=== PATIENT | male | born 1990 | race Caucasian/White ===

== ENCOUNTER 2020-02-03 07:49 | Outpatient (CLI) | payer OTHER, SELFPAY ==
--- NOTE | ~2020-02-03 | CT_ITS ---
EXAMINATION: CT abdomen pelvis w con DATE: 02/03/2020 09:06 INDICATION: Left upper quadrant abdominal pain. Nausea. TECHNIQUE: Computed tomography (CT) of the abdomen and pelvis was performed with 100 mL Omnipaque 350 intravenous contrast. Automated exposure control and iterative reconstruction technique were employe d. The dose-length product was 1229.61 mGy-cm. COMPARISON: None. FINDINGS: The visualized portions of the lung bases demonstrate a calcified nodule in left lower lobe , consistent with old granulomatous disease. No pleural effusion. The heart size is normal. No perica rdial effusion. There is diffuse hepatic steatosis. The gallbladder, spleen, pancreas, adrenal glands , and left kidney are normal. There is a 4 mm cyst in right kidney. There are 2 wedge-shaped areas of hypoenhancement in right kidney. There are bilateral inguinal hernias containing fat. There are no d ilated loops of bowel. The appendix is normal. There are no pathologically enlarged lymph nodes. Ther e is no free intraperitoneal fluid. There is mild thoracolumbar spondylosis. IMPRESSION: 1. Two wedge-shaped areas of hypoenhancement in right kidney, which may be acute or chronic pyeloneph ritis or infarct. 2. Diffuse hepatic steatosis. Reviewed, dictated and finalized at [facility]. IMPRESSION: 1. Two wedge-shaped areas of hypoenhancement in right kidney, which may be acut e or chronic pyelonephritis or infarct. 2. Diffuse hepatic steatosis.
[2020-02-03 08:48] LABS: Basophils Absolute Auto 0.1 K/mm3 (0.0-0.1); Basophils Percent Auto 0.6 % (0.2-1.2); Eosinophils Absolute Auto 0.2 K/mm3 (0-0.3); Eosinophils Percent Auto 1.9 % (0-4.4); Hematocrit 43.2 % (42.0-52.0); Hemoglobin 14.7 g/dL (14.0-18.0); Immature Granulocyte Absolute 0.04 K/mm3 (0.00-0.031); Immature Granulocyte Percent A 0.5 % (0-0.5); Lymphocytes Absolute Auto 2.57 K/mm3 (0.9-3.2); Lymphocytes Percent Auto 33.2 % (18.3-44.2); Mean Corpuscular Hemoglobin 29.2 pg (26-34); Mean Corpuscular Volume 85.9 fl (80-100); Mean Platelet Volume 8.2 fl (7.4-10.4); Monocytes Absolute Auto 0.6 K/mm3 (0.1-0.6); Monocytes Percent Auto 8.1 % (2.6-8.5); Neutrophils Absolute Auto 4.3 K/mm3 (1.3-6.7); Neutrophils Percent Auto 55.7 % (45.5-73.1); Platelet Count Result 307 k/mm3 (150-375); Red Blood Count 5.03 M/mm3 (4.6-6.20); Red Cell Distribution Width 12.1 % (11.5-14.5); White Blood Count 7.7 K/mm3 (4.5-10.0)
[2020-02-03 08:55] LABS: Add Urine Microscopic? NO; Appearance Urine Clear (Clear); Bilirubin Urine Negative (Negative); Blood Urine Negative (Negative); Color Urine Yellow (Yellow); Glucose Urine UA Negative (Negative); Ketones Urine Negative (Negative); Leukocyte Esterase Ur Negative LEU/UL (Negative); Mucus Urine Rare /lpf; Nitrate Urine Negative (Negative); Protein Urine Negative (Negative); RBC Urine 0-2 /hpf (0-2); Specific Grav Ur 1.018 (1.001-1.035); Squamous Epithelial Cell Urine Rare /hpf (Few); Urobilinogen Urine Negative mg/dL (<2.0); WBC Urine 0-3 /hpf
[2020-02-03 08:59] LABS: Hemoglobin A1C 5.2 % (<5.7)
[2020-02-03 09:04] LABS: Alanine Aminotransferase 80 U/L (4-50); Albumin Level 4.6 g/dL (3.5-5.1); Alkaline Phosphatase 75 U/L (38-126); Anion Gap 10 mmol/L (8-16); Aspartate Amino Transferase 37 U/L (17-59); Bilirubin,Total 0.8 mg/dL (0.2-1.3); Blood Urea Nitrogen 18 mg/dL (9-20); Calcium 9.4 mg/dL (8.4-10.2); Carbon Dioxide 29 mmol/L (22-30); Chloride 102 mmol/L (98-107); Cholesterol 235 mg/dL (0-200); Estimated Glomerular Filt Rate > 60; Glucose 98 mg/dL (75-110); HDL Direct 38 mg/dL; Lipase 43 U/L (23-300); Potassium 4.2 mmol/L (3.4-5.0); Sodium 141 mmol/L (137-145); Triglycerides 250 mg/dL (<150)
[2020-02-03 09:15] LABS: LDL Cholesterol Direct 164 mg/dL
[2020-02-03 09:32] LABS: Free T4 Free Thyroxine 0.83 ng/mL (0.78-2.19)
== END 2020-02-03 07:50 | disposition home or self-care (01) ==
PROVIDERS: PCP Nurse Practitioner Family; Visit Provider Nurse Practitioner Family
DX: R10.9 Unspecified abdominal pain (principal); K76.0 Fatty (change of) liver, not elsewhere classified
CPT/HCPCS: 36415; 74177; 80053; 80061; 81003; 83036; 83690; 84439; 84443; 85025; Q9967

== ENCOUNTER 2020-02-03 10:25 | Observation (INO) | payer OTHER, SELFPAY ==
--- NOTE | 2020-02-03 | ECHO_ITS ---
Patient Info Name: Otilio Navarrete Age: 29 years : 1990 Gender: Male Ht: 66 in Wt: 234 lbs BSA: 2.27 m2 HR: 64 bpm BP: 166 / 85 mmHg Technical Quality: Good Exam Date: 02/03/2020 3:25 PM Exam Location: [facility] Patient Status: Outpatient Admit Date: 02/03/2020 Staff Ordering Physician: Sarah Beth Odonnell MD Instructor [employer]: Najma Roland RDCS Attending Provider: Rickie Thomas MD Referring Physician: Blas GUTIERREZ; Exam Type: CA echo dop color flow w con Study Info Indications - RENAL INFARCT - R/O CARDIAC THROMBUS Complete two-dimensional, color flow and Doppler transthoracic echocardiogram is performed with contrast to opacify the left ventricle and to improve the deliniation of the left ventricle endocardial borders. Contrast/Agitated Saline Contrast/Ag. Saline: Definity Amount: 1.00 ml Existing IV Access: Yes IV Access Condition: patent with no signs of infiltration Summary 1. Left ventricular chamber dimension is normal. 2. Definity contrast administered improved wall motion interpretation. 3. Left ventricular systolic function is normal, estimated at 65-70%. 4. The left ventricular diastolic function is normal. 5. E/e' 6 is not elevated. 6. There is trace mitral valve regurgitation. 7. No pulmonary hypertension, estimated pulmonary arterial systolic pressure is 14 mmHg. 8. There is trace pulmonic regurgitation. Left Ventricle E/e' 6 is not elevated. Definity contrast administered improved wall motion interpretation. Left ventricular chamber dimension is normal. Left ventricular systolic function is normal, estimated at 65-70%. The left ventricular diastolic function is normal. Right Ventricle Right ventricular chamber dimension is normal. Right ventricular systolic function is normal. Left Atria Left atrial chamber dimension is normal. Right Atria Right atrial chamber dimension is normal. Aortic Valve The aortic valve is trileaflet. There is no aortic valve stenosis. There is no aortic valve regurgitation. Pulmonic Valve There is trace pulmonic regurgitation. Mitral Valve There is no mitral valve stenosis. There is trace mitral valve regurgitation. Tricuspid Valve There is no tricuspid valve regurgitation. No pulmonary hypertension, estimated pulmonary arterial systolic pressure is 14 mmHg. Pericardium/Pleural There is no pericardial effusion. Inferior Vena Cava Normal inferior vena cava with >50% collapse upon inspiration consistent with normal right atrial pressure, 5 mmHg. Aorta The aortic root size at the sinus of Valsalva is normal. Left Ventricular Outflow Tract Name Value Normal LVOT 2D LVOT Diameter 1.95 cm LVOT Doppler LVOT Peak Gradient 7 mmHg LVOT Mean Gradient 3 mmHg LVOT VTI 27.17 cm LVOT VTI/AV VTI Ratio 1.14 LVOT Stroke Volume 81.50 ml LVOT CO 5.69 l/min LVOT CI
--- NOTE | ~2020-02-03 | CT_ITS ---
EXAMINATION: CTA chest abdomen pelvis DATE: 02/04/2020 04:49 INDICATION: Kidney infarct seminal evaluate for mural thrombus. TECHNIQUE: Computed tomography (CT) of the chest, abdomen and pelvis was performed with 100 cc Omnipa que 350 intravenous contrast. Automated exposure control and iterative reconstruction technique were employed. Exam dose: 1564.65 mGy-cm total exam DLP. COMPARISON: 02/03/2020 CT abdomen pelvis with IV contrast material FINDINGS: No pulmonary infiltrate or consolidation or pulmonary mass lesion. The thyroid gland appears normal. No thoracic aortic aneurysm or dissection. Normal heart size. No pe ricardial or pleural effusion. No hilar or mediastinal mass lesion or lymphadenopathy. Diffuse hepatic steatosis. The gallbladder is present. No gallbladder wall thickening or pericholecys tic fluid or inflammation. No bile duct dilatation. Normal splenic size. No pancreatic mass lesion, c alcification or ductal dilatation. Normal morphology of the adrenal glands. Probable 4 mm cortical cyst of the inner aspect of lower pole of the right kidney. The 2 previously reported areas of wedge-shaped diminished enhancement of the lower pole of the right kidney are less apparent on the current examination. No renal space occupying mass lesion is noted otherwise. No urinary tract calculus or hydroureteronep hrosis. The urinary bladder, prostate gland and seminal vesicles are unremarkable. Normal caliber of the abdominal aorta. No atherosclerotic calcification or mural thrombus of the abdo braydon aorta or aortic branches including iliac and femoral arteries. No intraperitoneal or retroperitoneal or pelvic mass lesion or adenopathy or ascites. Normal appendix. No bowel obstruction, bowel wall thickening, pneumatosis or intraperitoneal free air . Bilateral fat-containing inguinal hernias. Included skeletal structures are unremarkable. IMPRESSION: Hepatic steatosis Patient reported areas of wedge shaped diminished enhancement of the lower pole right kidney are less apparent on the current examination compared to 02/03/2020 No atherosclerotic change or mural thrombus of the abdominal aorta or renal arteries Reviewed, dictated and finalized at [facility]. Reviewed, dictated and finalized at [facility]. IMPRESSION: Hepatic steatosis Patient reported areas of wedge shaped diminished enhancement of the lower pole right kidney are less apparent on the current examination compared to 02/03/20 20 No atherosclerotic change or mural thrombus of the abdominal aorta or renal art eries
--- NOTE | 2020-02-03 10:45 | ED.GENADULT ---
HPI - General Adult General Chief complaint: Abdominal Pain Stated complaint: Sent from radiology Time Seen by Provider: 02/03/20 10:30 Source: patient History of Present Illness HPI narrative: Patient is a 29 y/o male complaining of cramping left upper abdominal pain for 1 week. He rates his pain as 6/10. There is no pain radiation, no alleviating or exacerbating factor. He has some nausea, but no vomiting, diarrhea or dysuria. He had an outpatient CT done today, which showed pyelonephritis vs infarct. He was then directed to ED for further evaluation. He states that he had intermittent right flank pain in the past, but no right flank pain at this time. Related Data Home Medications Medication Instructions Recorded Confirmed omeprazole 02/03/20 Allergies Allergy/AdvReac Type Severity Reaction Status Date / Time No Known Allergies Allergy Verified 02/03/20 11:57 Review of Systems Constitutional: Constitutional: Denies chills, Denies fever(s), Denies headache(s) and Denies weakness Eyes: Eyes: Denies blurry vision ENT: Denies headache(s) and Denies neck pain Cardiovascular: Cardiovascular: Denies chest pain and Denies dyspnea Respiratory: Respiratory: Denies cough and Denies dyspnea Gastrointestinal: Gastrointestinal: Reports abdominal pain, Denies diarrhea, Reports nausea and Denies vomiting Genitourinary: Genitourinary: Denies hematuria, Denies dysuria and Reports flank pain (resolved right flank) Musculoskeletal: Musculoskeletal: Denies back pain and Denies neck pain Neurologic: Denies headache(s) and Denies weakness [facility] Social History Social History Smoking status: Former smoker Smoking end date: 04/07/15 Alcohol intake: never Exam Const: General: no acute distress and well developed Orientation/consciousness: oriented to person, oriented to place, oriented to time and patient oriented x3 HENMT: Head: normocephalic Ears: external ears normal General nose exam: Normal external nose present Eyes: General: appearance normal, both eyes and all related structures Conjunctivae: conjunctivae normal Neck: Neck: normal visual inspection and full ROM Chest: Chest palpation & inspection: normal inspection of the chest and no tenderness Resp: Effort & Inspection: normal respiratory effort Auscultation: clear to auscultation bilaterally Cardio: Rate: regular rate Rhythm: regular rhythm GI: GI Palp: No abdominal tenderness and Yes Soft to palpation Skin: General skin exam: normal color and turgor normal Neuro: General: oriented to person, oriented to place, oriented to time and patient oriented x3 Cognition (Neuro): normal cognition Extrem: General: normal to inspection, full ROM and no pedal edema Psych: Appearance: grossly normal Mental Status: mental status grossly normal Affect: normal affect Course Consultations Consultation #1: Discussed with Riley (urology), who recommend follow up with PCP. Date: 02/03/20 Time: 12:25 Consultation #2: Discussed with INFOR[employer] DEVELOPER Janiya Collins (primary), who recommends consulting vascular. Date: 02/03/20 Time: 12:47 Consultation #3: Discussed with Dr. Nation (vascular at [place]), who recommends evaluation for possible source of embolus, including doing CTA of chest/abdomen, Echo, screening for COVID as it may cause hypercoagulable state. He also recommends considering empirical anticoagulation unable evaluation is complete. Discussed with BC Iraheta 14:33 PM, who agrees to admit. Date: 02/03/20 Time: 14:27 Vital Signs Vital signs: Vital Signs Temperature 36.9 C 02/03/20 11:10 Pulse Rate 80 02/03/20 11:10 Respiratory Rate 16 02/03/20 11:10 Blood Pressure 153/95 H 02/03/20 11:10 Pulse Oximetry 96 02/03/20 11:10 Temperature 36.9 C 02/03/20 11:10 Pulse Rate 64 02/03/20 15:40 Respiratory Rate 16 02/03/20 15:40 Blood Pressure 138/80 02/03/20 15:40 Pulse Oximetry 9
[2020-02-03 11:10] VITALS: BP 153/95; PULSE 80; RESP 16; TEMP 36.9; O2SAT 96
[2020-02-03 13:00] VITALS: BP 138/81; PULSE 60; RESP 16; O2SAT 100
--- NOTE | 2020-02-03 14:35 | ECG_ITS ---
Measurements Intervals [place] Rate: 72 P: 38 CT: 160 QRS: 6 QRSD: 91 T: 16 QT: 388 QTc: 426 Interpretive Statements SINUS RHYTHM VOLTAGE CRITERIA FOR LVH MINIMAL Q WAVES- HIGH LATERAL LEADS NONSPECIFIC T-WAVE ABNORMALITY- INFERIOR LEADS MINIMAL Q WAVES- I, II, III, AVL BORDERLINE ECG Electronically Signed On 02-03-2020 19:21:20 CDT by Venkata Gloria D.O.
[2020-02-03 15:26] LABS: INR 1.4; Partial Thromboplastin Time 31.5 SECONDS (22.3-36.8); Prothrombin Time 16.4 Seconds (11.1-14.7)
[2020-02-03] MEDS: ENOXAPARIN 100 MG/ML SYRINGE SUB-Q (15:33)
[2020-02-03 15:40] VITALS: BP 138/80; PULSE 64; RESP 16; O2SAT 98
[2020-02-03] MEDS: PERFLUTREN LIPID MICROSPHERES 1.5 ML VIAL DILUTED TO 10 ML TOTAL VOLUME IV PUSH (16:01)
[2020-02-03 17:25] VITALS: BP 150/89; PULSE 79; RESP 18; TEMP 36.8; O2SAT 98
--- NOTE | 2020-02-03 17:26 | ADMGEN ---
This patient, Otilio Navarrete, was admitted to [facility] Surg Room 322-01. Patient/family oriented to hospital policies and general routines including ID bracelet, bed and alarms, visiting hours, pain management, procedures, bathroom and other care routines, personal items, smoking policy, room service/diet, and visiting hours. Information on how to activate the Rapid Response Team has been discussed. Patient/Family are encouraged to report perceived risks to care and to ask questions if they do not understand what they are told or what they should do.
[2020-02-03 18:37] VITALS: PULSE 85
[2020-02-03 20:00] VITALS: BP 132/72; PULSE 84; PULSE 87; RESP 18; TEMP 36.3; O2SAT 97; O2SAT 98
--- NOTE | 2020-02-03 21:00 | PM.IMHP ---
H&P: HPI History of Present Illness Date/Time: 02/03/20 21:00 Chief complaint: Abnormal CT of the abdomen and pelvis. Narrative: Otilio Navarrete is a 29-year-old with GERD who presented to the emergency department earlier today from Radiology for further evaluation of an abnormal CT of the abdomen and pelvis. About a week ago while sitting at his desk at work, he developed what he thought was a muscle spasm in the left flank region. It was not severe enough for him to require analgesics, and it seemed to improve on its own. Since that time however the discomfort has returned intermittently, and he sees no pattern as to when it occurs. It does not seem to radiate and he gives no significant aggravating or alleviating factors. On occasion he will have some mild associated nausea but nothing significant. He had a similar episode located in the right flank about a month or so ago, but it did not persist. He was sent for a CT of the abdomen and pelvis and had several labs done as an outpatient today, and was directed to the emergency department after his CT scan showed 2 wedge-shaped areas of enhancement in the right kidney consistent with either acute on chronic pyelonephritis or infarct. He has no personal or family history of blood clots. He has had no symptoms to suggest underlying urinary tract infection, specifically denying malodorous urine, dysuria, hesitancy, and frequency. He has not had chest pain, pleuritic pain, or shortness of breath. No lower extremity edema or recent travel. He has not injured himself as he can recall. He does suffer from pretty significant GERD but has no history of peptic ulcers. No history of gallbladder disease or pancreatitis. Regarding his abnormal CT scan findings, Dr. Odonnell (ED physician) spoke with urologist Dr. Lin (urology) who suggested management per primary care provider, who felt that a vascular surgeon should be consulted. Dr. Odonnell then spoke with vascular surgeon Dr. Nation at [place] who did not feel the patient needed to be transferred and instead suggested pursuing a workup to evaluate for possible embolus including CTA of the chest and abdomen as well as an echocardiogram. COVID screening also suggested, as that can cause hypercoagulable state. Review of Systems Review of Systems: Narrative: Twelve systems were reviewed with pertinent positives and negatives as per HPI. No fever, chills, or sweats. No recent cold or flu symptoms. He denies chest pain and pleuritic pain. Occasional nausea. No vomiting. His GERD is well controlled when he remembers to take his omeprazole, however when he forgets to take it he has pretty significant symptoms. No melena or hematochezia. Except as documented, all other systems were reviewed and are negative. [facility] Past Medical History Medical History (Updated 02/03/20 @ 23:07 by Myrtle Diaz PA-C) Gastroesophageal reflux disease Hepatic steatosis Noted on imaging dated 02/03/2020. History of varicocele Mixed hyperlipidemia Surgical History Surgical History (Updated 02/03/20 @ 20:35 by Myrtle Diaz PA-C) History of photorefractive keratectomy (PRK) Status post inguinal ligation of varicocele (~07/2017) Family History Family History Grandparent Diabetes mellitus Social History Social History (Updated 02/03/20 @ 23:00 by Myrtle Diaz PA-C) Social History: Surrogate decision maker: Rebecca Garzade, spouse. Code status: Full code. Smoking packs per day: 1 Smoking cigarettes per day: 20.0 Smoking status: Former smoker Tobacco type: cigarettes Smoking end date: 04/07/15 Alcohol intake: current Drinks per week: 1 Substance use: never Additional living arrangements comments: Lives in [place] with his and their 3 children. 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 Gender identity (if verbalized by the patient)
[2020-02-04] VITALS: BP 137/73; PULSE 64; PULSE 69; RESP 18; TEMP 36.2; O2SAT 96
[2020-02-04] MEDS: SODIUM CHLORIDE 0.9% IV 250 ML 100 ML IV CONT (00:15)
[2020-02-04 04:00] VITALS: BP 136/78; PULSE 59; PULSE 67; RESP 16; TEMP 36.3; O2SAT 98
--- NOTE | 2020-02-04 04:30 | PC.NURSE ---
To Cat Scan per wheelchair. No complaints voiced.
--- NOTE | 2020-02-04 04:43 | PC.NURSE ---
Returned to room from Cat Scan per wheelchair.
[2020-02-04 08:00] VITALS: BP 121/72; PULSE 65; PULSE 72; RESP 18; TEMP 35.9; O2SAT 98
[2020-02-04] MEDS: ENOXAPARIN 100 MG/ML SYRINGE SUB-Q (09:00)
[2020-02-04] MEDS: PANTOPRAZOLE SOD SESQUIHYDRATE 20 MG TAB PO (09:01)
--- NOTE | 2020-02-04 09:16 | PM.IMPN ---
Subjective Date/time seen: 02/04/20 09:16 Objective Data Vital Signs Vital Signs: Vital Signs - 24 hr 02/03/20 11:10 02/03/20 13:00 02/03/20 15:40 Temperature 36.9 C Pulse Rate 80 60 64 Respiratory Rate 16 16 16 Blood Pressure 153/95 H 138/81 138/80 Pulse Oximetry 96 100 98 02/03/20 17:25 02/03/20 18:37 02/03/20 20:00 Temperature 36.8 C 36.3 C L Pulse Rate 79 85 87 Respiratory Rate 18 18 Blood Pressure 150/89 H 132/72 Pulse Oximetry 98 98 02/04/20 00:00 02/04/20 04:00 02/04/20 08:00 Temperature 36.2 C L 36.3 C L Pulse Rate 69 59 L 65 Respiratory Rate 18 16 Blood Pressure 137/73 136/78 Pulse Oximetry 96 98 Intake/Output Intake/Output: Intake & Output 02/01/20 02/02/20 02/03/20 02/04/20 23:59 23:59 23:59 23:59 Intake Total 800 Output Total 1200 Balance -400 Meds/Results Medications: Active Medications Generic Name Dose Route Start Last Admin Trade Name Freq PRN Reason Stop Dose Admin Enoxaparin Sodium 100 mg 02/04/20 09:00 02/04/20 09:00 Enoxaparin 100 Mg/Ml Syringe SUB-Q 100 mg Q12HR LEON Administration Pantoprazole Sodium 20 mg 02/04/20 09:00 02/04/20 09:01 Pantoprazole Sod Sesquihydrate 20 Mg Tab PO 20 mg QAM LEON Administration Radiology Results: ITS Impressions Chest/Abdomen/Pelvis CTA 02/04/20 07:04 IMPRESSION: Hepatic steatosis Patient reported areas of wedge shaped diminished enhancement of the lower pole right kidney are less apparent on the current examination compared to 02/03/2020 No atherosclerotic change or mural thrombus of the abdominal aorta or renal arteries Labs Labs: Laboratory Results - last 24 hr 02/03/20 14:46 PT 16.4 H INR 1.4 APTT 31.5 Quality VTE Prophylaxis VTE prophylaxis: mechanical ordered
[2020-02-04 12:00] VITALS: BP 134/75; PULSE 73; PULSE 82; RESP 18; TEMP 36.4; O2SAT 96
[2020-02-04 12:45] LABS: SARS-CoV-2 RNA PCR Negative
--- NOTE | 2020-02-04 14:07 | PM.DS ---
DS: Admitting Diagnosis Admitting Diagnosis Admitting Diagnosis: Abnormal CT of the abdomen and pelvis. DS: Discharge Diagnosis Discharge Diagnosis (1) Abnormal computed tomography of abdomen and pelvis: Code(s): R93.5 - Abnormal findings on diagnostic imaging of other abdominal regions, including retroperitoneum Status: Acute Assessment and Plan: CTA of the chest abdomen and pelvis does not have any concerns as the 1st scan did, that the renal wedges are not noticeable and no PE. UA clear , no fevers, no urinary s/s, no return of any pain or tenderness, WBC normal - rule out pyelonephritis no personal or family history of blood clots. no symptoms to suggest underlying urinary tract infection, specifically denying malodorous urine, dysuria, hesitancy, and frequency. not had chest pain, pleuritic pain, or shortness of breath. No lower extremity edema or recent travel. no trauma or injury history no history of peptic ulcers. No history of gallbladder disease or pancreatitis. patient may f/u with vascular surgeon Dr. Nation at [place] as needed or if s/s return echocardiogram normal with no acute concerns. COVID screening negative d-dimer check was WNL at 0.29 Mixed hyperlipidemia - Trig 250, Chol 235 - better diet and F/U with PCP to monitor and start meds as needed. elevated ALT 80 and Diffuse hepatic steatosis - improve diet, rule in/out DM, increase exercise, avoid alcohol. Pleurisy (2) Gastroesophageal reflux disease: Code(s): K21.9 - Gastro-esophageal reflux disease without esophagitis Status: Acute Assessment and Plan: continue omeprazole discussed with primary care provider switching to Protonix follow better heart healthy diet avoid fried foods as those can cause or lead to worse GERD stay upright after eating meals weight control as obesity can contribute to GERD (3) Hepatic steatosis: Code(s): K76.0 - Fatty (change of) liver, not elsewhere classified Status: Acute Assessment and Plan: alcohol cessation checking A1c = 5.1 hepatitis panel pending and patient understands to check online in the next day or 2 for those results he is to follow-up with his primary care provider to discuss those results obese patient needs to follow a heart healthy and low fat diet and start/increase exercise patient currently wants to try dietary control to improve his fatty liver disease Follow up with PCP regarding elevated liver enzyme and fatty liver disease (4) Left flank pain: Code(s): R10.9 - Unspecified abdominal pain Status: Acute Assessment and Plan: currently resolved and has been all day no pain control required no pain medications used since his admission likely pleurisy (5) Mixed hyperlipidemia: Code(s): E78.2 - Mixed hyperlipidemia Status: Inactive Assessment and Plan: Trig 250, Chol 235, HDL 38, LDL 164 checking A1c obese patient needs to follow a heart healthy and low fat diet patient currently wants to try dietary control to improve his cholesterol levels Follow up with PCP regarding cholesterol levels and repeat labs to see if medication intervention is needed DS: Summary Time Spent with Patient Time attestation: Total time spent providing and/or coordinating discharge services:90 minutes Exam Const: General: no acute distress and well developed Orientation/consciousness: oriented to person, oriented to place, oriented to time and patient oriented x3 HENMT: Head: normocephalic Ears: external ears normal General nose exam: Normal external nose present Eyes: General: appearance normal, both eyes and all related structures Conjunctivae: conjunctivae normal Neck: Neck: normal visual inspection and full ROM Chest: Chest palpation & inspection: normal inspection of the chest and no tenderness Resp: Effort & Inspection: normal respiratory effort Auscultation: clear to auscultation tho
[2020-02-04 14:35] LABS: Hemoglobin A1C 5.1 % (<5.7)
[2020-02-04 14:40] LABS: D Dimer 0.29 ug/mL (<0.48)
[2020-02-04 16:19] LABS: Hepatitis B Surface Antigen Negative (Negative)
[2020-02-04 16:25] LABS: HAV RESULT Negative (Negative); Hepatitis B Core IgM Result Negative (Negative)
[2020-02-04 16:36] LABS: Hepatitis C Virus Antibody Negative (Negative)
== END 2020-02-04 16:00 | disposition home or self-care (01) ==
LOC: ANHED 15:00 → ANH3MEDSUR 15:34
PROVIDERS: Admitting Provider Internal Medicine; Emergency Provider Emergency Medicine; PCP Nurse Practitioner Family; Visit Provider Nurse Practitioner
DX: R93.5 Abnormal findings on diagnostic imaging of other abdominal regions, including retroperitoneum (principal); R10.12 Left upper quadrant pain; R11.0 Nausea; K21.9 Gastro-esophageal reflux disease without esophagitis; K76.0 Fatty (change of) liver, not elsewhere classified; E78.2 Mixed hyperlipidemia; Z87.891 Personal history of nicotine dependence; Z20.828 Contact with and (suspected) exposure to other viral communicable diseases
CPT/HCPCS: 36415; 71275; 74174; 80074; 83036; 85380; 85610; 85730; 87635; 93005; 96360; 96361; 96372; 96374; 99285; A9270; C8929; C9803; G0378; J1650; J7050; Q9957; Q9967; U0003

== ENCOUNTER 2023-08-01 08:28 | Emergency (ER) | payer OTHER, SELFPAY ==
[2023-08-01 08:33] VITALS: BP 115/68; PULSE 109; RESP 16; TEMP 37.4; O2SAT 97
--- NOTE | 2023-08-01 08:48 | ED.URI ---
HPI - URI/Sore Throat General Chief Complaint: Upper Respiratory Infection Stated Complaint: SORE THROAT/COUGH/FEVER/CONGESTION/BODY ACHES Time Seen by Provider: 08/01/23 08:44 Source: patient and RN notes reviewed Mode of arrival: ambulatory Limitations: no limitations History of Present Illness HPI Narrative: Patient presents today with a 2 day history of sore throat, cough, body aches, fever up to 102.5, congestion, dizziness and fatigue. Currently rates his pain 5/10 and has been taking Mucinex without much relief. No history of asthma or COPD. He is a nonsmoker. Reports daughter recently had a sore throat at home. Related Data Home Medications Medication Instructions Recorded Confirmed No Home Medications 08/01/23 08/01/23 Allergies Allergy/AdvReac Type Severity Reaction Status Date / Time No Known Allergies Allergy Verified 08/01/23 08:39 Review of Systems Review of Systems: CONSTITUTIONAL: Denies chills, or sweats.+ body aches, fatigue EYES: Denies visual changes, redness, or discharge. ENT: Denies rhinorrhea, or otalgia.+ congestion, sore throat CARDIOVASCULAR: Denies chest pain, palpitations, or edema. RESPIRATORY: Denies dyspnea.+ cough GASTROINTESTINAL: Denies abdominal pain, vomiting, or diarrhea.+ nausea GENITOURINARY: Denies dysuria or hematuria. SKIN: Denies rash, itching, or wounds. MUSCULOSKELETAL: Denies back pain, joint pain, or myalgia. NEUROLOGIC: Denies headache, numbness, tingling, or weakness. PSYCH: Denies depression or anxiety. [facility] Past Medical History Medical History Gastroesophageal reflux disease Hepatic steatosis Noted on imaging dated 02/03/2020. History of varicocele Mixed hyperlipidemia Surgical History Surgical History History of photorefractive keratectomy (PRK) Status post inguinal ligation of varicocele (~07/2017) Family History Family History Grandparent Diabetes mellitus Social History Social History Social History: Surrogate decision maker: Rebecca Navarrete, spouse. Code status: Full code. Smoking packs per day: 1 Smoking cigarettes per day: 20.0 Smoking status: Former smoker Tobacco type: cigarettes Smoking end date: 04/07/15 Alcohol intake: current Drinks per week: 1 Substance use: never Additional living arrangements comments: Lives in [place] with his and their 3 children. Additional occupation/education comments: catalog specialist. Gender identity (if verbalized by the patient): Male Spiritual care concerns: No Comments At time of signature, I have reviewed and agree with nursing past medical, surgical, social and family history unless otherwise noted. Please see nursing chart for further information. There is no relevant family history pertinent to the presenting complaint Exam Narrative: GENERAL: Mildly ill-appearing, well-nourished, and in no acute distress. HEAD: Normocephalic, atraumatic. EYES: EOMI. No redness or drainage. Conjunctivae normal. ENT: Mucous membranes pink and moist. Nares congested. No rhinorrhea. TMs normal bilaterally. Throat erythematous with mild edema. No exudate. Uvula midline. NECK: Normal AROM. Supple. No lymphadenopathy. CHEST: No respiratory distress. Clear to auscultation. HEART: Regular rate and rhythm. No murmur appreciated. EXTREMITIES: Normal range of motion. No edema. SKIN: Warm, dry, no rash. Capillary refill normal. Normal skin turgor. NEURO: No focal deficits. Alert and oriented x3. Gait steady. PSYCH: Normal affect. No signs of depression or anxiety. Course Course Level of Care: Express Care Visit Vital Signs Vital signs: Vital Signs Temperature 99.3 F 08/01/23 08:33 Pulse Rate 109 H 07/31
== END 2023-08-01 09:10 | disposition home or self-care (01) ==
PROVIDERS: Emergency Provider Nurse Practitioner
DX: J06.9 Acute upper respiratory infection, unspecified (principal); Z20.822 Contact with and (suspected) exposure to COVID-19; Z87.891 Personal history of nicotine dependence; K21.9 Gastro-esophageal reflux disease without esophagitis; K76.0 Fatty (change of) liver, not elsewhere classified; E78.2 Mixed hyperlipidemia
CPT/HCPCS: 87081; 87426; 87804; 87880; 99203; G0463

== ENCOUNTER 2023-08-24 14:41 | Emergency (ER) | payer OTHER, SELFPAY ==
--- NOTE | ~2023-08-24 | XR_ITS ---
EXAM: XR foot RT min 3V DATE: 08/24/2023 15:03 HISTORY: dorsal foot pain no injury . COMPARISON: None available. FINDINGS: Normal mineralization. No fracture or dislocation. No lytic or blastic lesion. Joint space s are maintained. No erosion or periosteal change. Soft tissues within normal limits. IMPRESSION: No acute osseous finding in the right foot. Reviewed, dictated and finalized at location K.
--- NOTE | 2023-08-24 14:42 | ED.LOWEXIN ---
HPI - Extremity Injury (Lower) General Chief Complaint: Extremity Problem,Nontraumatic Stated Complaint: Right Foot Pain Time Seen by Provider: 08/24/23 14:42 Source: patient Mode of arrival: ambulatory Limitations: no limitations History of Present Illness HPI Narrative: Otilio is a 33-year-old male patient presenting to the clinic today with complaints of right dorsal foot pain. He reports pain started yesterday. Has been taking ibuprofen with minimal relief. No known injury. States he had this occurred 2 months ago any took Tylenol/ibuprofen and iced it and rested it for few days and improved. Related Data Home Medications Medication Instructions Recorded Confirmed No Home Medications 08/01/23 08/24/23 Allergies Allergy/AdvReac Type Severity Reaction Status Date / Time No Known Allergies Allergy Verified 08/24/23 14:52 Review of Systems Review of Systems: Pertinent positives per HPI. Patient denies any fever, chills, rash, headache, visual changes, dizziness, cough, runny nose, sore throat, shortness of breath, chest pain, palpitations, nausea, vomiting, diarrhea, constipation, abdominal pain, or any urinary issues. [facility] Past Medical History Medical History Gastroesophageal reflux disease Hepatic steatosis Noted on imaging dated 02/03/2020. History of varicocele Mixed hyperlipidemia Surgical History Surgical History History of photorefractive keratectomy (PRK) Status post inguinal ligation of varicocele (~07/2017) Family History Family History Grandparent Diabetes mellitus Social History Social History Social History: Surrogate decision maker: Rebecca Navarrete, spouse. Code status: Full code. Smoking packs per day: 1 Smoking cigarettes per day: 20.0 Smoking status: Former smoker Tobacco type: cigarettes Smoking end date: 04/07/15 Alcohol intake: current Drinks per week: 1 Substance use: never Additional living arrangements comments: Lives in [place] with his and their 3 children. 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 Gender identity (if verbalized by the patient): Male Spiritual care concerns: No Comments At the time of my signature, I reviewed and agree with the nursing past medical, surgical, social, and family history. There is no relevant family history pertinent to the patient complaint. Exam Narrative: General: Well-developed, well nourished, in no apparent distress Head: Normocephalic, atraumatic. Cardio: Regular rate and rhythm, s1 and s2 normal, no murmur appreciated. Resp: Clear to auscultation bilaterally, no rhonchi, rales, wheezing or rubs. Musculoskeletal: No deformity, tender to palpation over the top of the dorsal foot, pain with plantar flexion and dorsal flexion against resistance over the dorsal foot, grossly normal range of motion, muscle strength strong and equal, peripheral pulse strong, no edema, no cyanosis, normal gait and station Course Course Emergency Course: Portions of this record may have been created with voice recognition software. Level of Care: Express Care Visit Vital Signs Vital signs: Vital signs reviewed MDM - Extremity Injury (Lower) MDM Narrative Medical decision making narrative: At the time of visit patient is resting comfortably on the exam table. Patient appears to be nontoxic. Diagnostics: X-ray of the right foot was performed and was negative for any sign of fracture or malalignment. Plan: I suspect patient has acute foot pain likely due to tendinitis in the foot. Recommend taking ibuprofen and icing. Supportive measures were discussed with the patient and they voiced understanding discharge instructions and agrees to treatmen
[2023-08-24 14:49] VITALS: BP 130/83; PULSE 75; RESP 16; TEMP 36.9; O2SAT 98
== END 2023-08-24 15:26 | disposition home or self-care (01) ==
PROVIDERS: Emergency Provider Nurse Practitioner Family; PCP Nurse Practitioner Family
DX: M79.671 Pain in right foot (principal); Z87.891 Personal history of nicotine dependence; K21.9 Gastro-esophageal reflux disease without esophagitis; E78.2 Mixed hyperlipidemia
CPT/HCPCS: 73630; 99213; G0463

== ENCOUNTER 2025-03-05 17:33 | Emergency (ER) | payer OTHER, SELFPAY ==
--- NOTE | ~2025-03-05 | US_ITS ---
EXAMINATION: US venous doppler LE RT, 03/05/2025 18:55 CONSTRUCTION EQUIPMENT TECHNICIAN HISTORY: R calf pain Comparison: None Technique: Gould-scale and color Doppler images were attempted of the lower saphenofemoral junction, common femoral vein,superficial femoral vein, proximal deep femoral vein, proximal deep femoral vein, popliteal vein and posterior tibial veins. Findings: Deep Venous System:Normal flow, augmentation and compressibility. No echogenic thrombus identified. The contralateral saphenofemoral junction appears unremarkable. Superficial Venous SystemNo superficial thrombophlebitis. Soft tissues: Soft tissues are unremarkable. Impression: Negative for DVT. Reviewed, dictated and finalized at location P. TRUCTION EQUIPMENT TECHNICIAN Impression: Negative for DVT.
--- NOTE | ~2025-03-05 | XR_ITS ---
EXAMINATION: XR foot RT min 3V, 03/05/2025 19:12 PAPERHANGER ASSISTANT HISTORY: pain top of R foot X1 WEEK NO INJURY, ABLE TO WALK COMPARISON: No comparisons available. Findings: No acute fracture or malalignment. No significant degenerative changes. Soft tissues unremarkable. Impression: No acute fracture or malalignment. Reviewed, dictated and finalized at location P. RHANGER ASSISTANT Impression: No acute fracture or malalignment.
--- OUTSIDE RECORDS SUMMARY | 2025-03-05 17:36 | XMS_ITS | Clinical Summary ---
Author Organization [facility] Virtual Care Address [address] [place] [phone] Phone Care Team Providers Care Calender Operator Name Role Phone Annmarie Quarles NP Primary Care Provider [phone] Allergies Active Allergy Reactions Criticality Noted Date Comments Oxycodone-Acetaminophen Swelling Medium 08/01/2023 Medications albuterol HFA (PROVENTIL HFA,VENTOLIN HFA,PROAIR HFA) 90 mcg/actuation inhaler Inhale 2 puffs every 4 (four) hours as needed for wheezing or shortness of breath 1 each 03/17/20 24 Active Additional Information Patient not taking.Reported on 01/19/2025 ergocalciferol (VITAMIN D) 50,000 unit capsule Take 1 capsule (50,000 Units total) by mouth once a week 12 capsule 12/14/19 25 Active Additional Information Patient not taking.Reported on 01/19/2025 dicyclomine (BENTYL) 20 mg tablet Take 1 tablet (20 mg total) by mouth every 6 (six) hours as needed (abdominal pain with cramps) 120 tablet 01/05/20 25 Active Additional Information Patient not taking.Reported on 02/08/2025 ondansetron (ZOFRAN) 4 mg tabletIndicatio ns:Nausea and vomiting, unspecified vomiting type Take 1 tablet (4 mg) total 30 minutes before starting colonoscopy prep. Use the 2nd tablet as needed for nausea and vomiting. 2 tablet 01/20/20 25 Active cyanocobalamin (Vitamin B-12) 2,000 mcg tablet Take 1 tablet (2,000 mcg total) by mouth daily 90 tablet 1 01/21/20 25 Active omeprazole (PriLOSEC) 20 mg capsule TAKE 1 CAPSULE(20 MG) BY MOUTH DAILY 30 capsule 02/17/20 25 Active omeprazole (PriLOSEC) 20 mg capsule Take 1 capsule (20 mg total) by mouth daily 30 capsule 12/14/19 25 025 Discontinued Active Problems Problem Noted Date Diagnosed Date Normal screening colonoscopy 01/19/2025 Normal esophagogastroduodenoscopy (EGD) 01/20/20 Hematochezia 01/19/2025 Assessment & Plan (01/19/2025 4:09 PM CDT): Clinical presentation is most consistent with lower GI bleeding, rule out hemorrhoidal bleeding, anal fissure, colitis, or intra colonic lesions. Bowel habit changes 01/19/2025 Assessment & Plan (01/19/2025 4:11 PM CDT): Rule out IBD, IBS, colonic dysmotility, medication effects, celiac disease. Colonoscopy and EGD had been scheduled. The benefits and risks of procedures were discussed with patient. Patient agrees to proceed. Family history of celiac disease 01/19/2025 Assessment & Plan (01/19/2025 4:14 PM CDT): Plan serological screening for celiac disease Low serum vitamin B12 01/19/2025 Assessment & Plan (01/19/2025 4:14 PM CDT): EGD and colonoscopy has been scheduled. B12 level has been checked today. Patient is currently on PPI therapy Abdominal pain 01/19/2025 Assessment & Plan (01/19/2025 4:17 PM CDT): Colonoscopy has been scheduled to evaluate lower GI mucosal diseases. Abnormal computed tomography of abdomen and pelv is 12/13/2024 Left flank pain 12/13/2024 Renal infarction 12/13/2024 Steatosis of liver 12/13/2024 Carrier of group B Streptococcus 12/03/2023 Allergies 12/03/2023 Arthralgia of knee 12/03/2023 Obesity 12/03/2023 Bilateral otitis media 12/03/2023 Carpal tunnel syndrome 12/03/2023 Costochondritis 12/03/2023 Overview (12/03/2023): Take medication as discussed and follow up if Sx worsen or change. 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 6 year old daughter recently in remission x 1 year from cancer. Passive SI thoughts. Denies active thoughts or plans. Has hx PTSD also. I feel the mood not being at goal is contributing to short term memory difficulties. SLUMS in office is 26. Patient has Psychologist he was seeing through [facility] and is going to get back in contact with them, he declines medication management today. Will have pt message me when he has appt. Follow up 3 months, sooner if needed. Derangement of medial meniscus 12/03/2023 Diarrhea 12/03/2023 Shortness of breath 12/03/2023 Dry eye syndrome 12/03/2023 Epigastric abdominal tenderness 12/03/2023 Exercise-induced bronchospasm 12/03/2023 Fatigue 12/03/2023 Gastroenteritis 12/03/2023 Hyperlipidemia 12/03/2023 Insomnia 12/03/2023 Involuntary movements 12/03/2023 Irritable mood 12/03/2023 Knee sprain 12/03/2023 Localized chest pain 12/03/2023 Lumbago 12/03/2023 Lymph nodes enlarged 12/03/2023 Major depressive disorder, single episode, moder ate 12/03/2023 Moderate episode of recurrent major depressive d isorder 12/03/2023 Muscle pain 12/03/2023 Myopia 12/03/2023 Nicotine dependence 12/03/2023 Numbness 12/03/2023 Overview (12/03/2023): LUE, intermittent. Overweight 12/03/2023 Pins and needles sensation 12/03/2023 Overview (12/03/2023): ASSESSMENT: Patient has decreased functional performance in work, leisure, and ADL activities secondary to left carpal Tunnel Syndrome. Patient has no barriers to learning. Patient has good rehab potential. PLAN: Patient educated on home program consisting of; -Heat/cold modalities -ROM exercises (A/AA/PROM)-tendon glide handout given -Activity modification/work simplification -Splint wear consistently for 3 weeks-script given -Educational handout given for Carpal tunnel syndrome -Pnt concurred with POC -F/u with OT for re-eval x 2 weeks. Patient's goal: independence in ADLs LTG: Patient will be independent in all activities without pain x 3 months. STG: Decrease pain by 2 on a pain scale with above treatment plan x 3 weeks. STG: Report 100% compliance with home program in 3 weeks. Pain in wrist 12/03/2023 Sensorineural hearing loss (SNHL) of left ear Sinusitis 12/03/2023 Somatic dysfunction of thoracic region Tear of meniscus of knee 12/03/2023 Transient tic disorder 12/03/2023 Varicocele 12/03/2023 Overview (12/03/2023): ahlta not working correctly; motrin 800 mg q8hrs prn pain. reassurance, picture shown, mango strap Allergic rhinitis 12/03/2023 Adjustment disorder with depressed mood 12/03/19 Adjustment disorder with anxious mood 12/03/2023 Acute pharyngitis 12/03/2023 Gastroesophageal reflux disease 04/08/2019 Assessment & Plan (01/19/2025 4:16 PM CDT): EGD has been scheduled to evaluate epigastric tenderness and to evaluate complications of gastroesophageal reflux. Assessment & Plan (12/03/2023 2:49 PM CDT): He has stopped his Omeprazole, was worried it was contributing to memory. Will start otc Pepcid daily prn. Assessment & Plan (11/27/2022 2:24 PM CDT): Has been out of his Omeprazole and symptoms worsening. Restart Omeprazole. Refill sent. Migraine headache 10/31/2017 Overview (11/27/2022): Transitioned From: Atypical migraine Headache syndrome 07/02/2017 Resolved Problems Problem Noted Date Diagnosed Date Resolved Date Need for occupational therapy assessment 12/03/2023 12/03/2023 Overview (12/03/2023): ASSESSMENT: Patient has increased functional performance in work, leisure, and ADL activities secondary to HEP for left carpal Tunnel Syndrome. Patient has no barriers to learning. Patient has good rehab potential. Pain increasing but t/n has resolved and pnt has full AROM. strength slightly decreased on left. STGs ongoing. PLAN: Patient educated on home program consisting of; -Heat/cold modalities -ROM exercises (A/AA/PROM)-tendon glide handout given and yellow tputty -Activity modification/work simplification -Splint wear consistently for 3 weeks -Educational handout given for Carpal tunnel syndrome -Pnt concurred with POC -F/u with OT PRN. Patient's goal: independence in ADLs LTG: Patient will be independent in all activities without pain x 3 months. STG: Decrease pain by 2 on a pain scale with above treatment plan x 3 weeks. Encounters Date Type Department Care Team Description 5 Results Follow-Up [facility] Gastroenterology at [address] [place] [phone] Jacqueline Ram MD Surgical pathology 5 9:00 AM FOOD WRITER - 5 10:00 AM [facility] Surgery [address] [address] Jacqueline Ram MD ESOPHAGOGASTRODUODENOSCOPY BIOPSY 5 8:40 AM FOOD WRITER Anesthesia Event [address] [address] Jacqueline Ram MD Fitterer, Morgan Elisabeth, RENATO 5 7:54 AM FOOD WRITER - 5 10:05 AM FOOD WRITER Hospital Encounter [address] [address] Jacqueline Ram MD Normal screening colonoscopy; Normal esophagogastroduodenoscopy (EGD) Discharge Disposition: Discharge to home or self care 5 Results Follow-Up [facility] Gastroenterology at [address] [phone] Jacqueline Ram MD Celiac reflex panel, Tissue transglutaminase IgA (TGG-IgA Ab) 5 Telephone [facility] Primary Care at [address] [phone] Annmarie Quarles, FINANCIAL SALES PROFESSIONAL Test Results 5 Orders Only [facility] Primary Care at [address] [phone] Annmarie Quarles, FINANCIAL SALES PROFESSIONAL B12 deficiency (Primary Dx) 5 Orders Only [facility] Primary Care at [address] [phone] Annmarie Quarles, FINANCIAL SALES PROFESSIONAL 5 11:45 AM CDT Lab [address] [address] Low serum vitamin B12; Family history of celiac disease 5 11:00 AM CDT Office Visit [facility] Gastroenterology at [address] [phone] Jacqueline Ram MD Low serum vitamin B12 (Primary Dx); Family history of celiac disease; Gastroesophageal reflux disease, unspecified whether esophagitis present; Hematochezia; Bowel habit changes; Lower abdominal pain 5 8:00 AM CDT Lab [address] [address] Blood in stool; B12 deficiency; Thyroid disorder screen 5 Orders Only [facility] Gastroenterology at [address] [phone] Alex Calloway MD Nausea and vomiting, unspecified vomiting type (Primary Dx); Normal screening colonoscopy; Normal esophagogastroduodenoscopy (EGD) 5 Orders Only [facility] Primary Care at [address] [phone] Annmarie Quarles FINANCIAL SALES PROFESSIONAL 5 Orders Only [facility] Primary Care at [address] [phone] Annmarie Quarles, FINANCIAL SALES PROFESSIONAL Blood in stool (Primary Dx); Epigastric pain 5 Orders Only [facility] Primary Care at [address] [phone] Annmarie Quarles, FINANCIAL SALES PROFESSIONAL Blood in stool (Primary Dx); Epigastric pain 5 1:30 PM CDT Office Visit [facility] Primary Care at [address] [phone] Annmarie Quarles, SHELLY Annual physical exam (Primary Dx); Blood in stool; Epigastric pain 5 8:50 AM CDT Lab [address] [address] Vitamin D deficiency; Moderate mixed hyperlipidemia not requiring statin therapy; Encounter for screening examination for intermediate hyperglycemia and diabetes mellitus 5 Results Follow-Up [facility] Primary Care at [address] [phone] Annmarie Quarles, FINANCIAL SALES PROFESSIONAL Vitamin D 25 hydroxy, Lipid panel, Hemoglobin A1c, Additional followed-up results: 8 from Last 3 Months Immunizations Immunization Administration Dates Next Due Anthrax 09/10/2011,07/08/2008,05/06/2008 H1N1 Inj 02/17/2009 Hep A / Hep B 10/06/2006 Hep A, Adult 04/19/2008,09/16/2007 Hep B Vaccine 09/16/2007,11/12/2006 INFLUENZA [id number] 02/17/2009 IPV 10/02/2006 Influenza LAIV (Nasal) 01/07/2012,01/11/2008, Influenza, Quadrivalent, Spl it, Intramuscular 02/17/2009 Influenza, Quadrivalent, Spl it, Preservative Free, Intramuscular 03/04/2022,01/25/2019,01/02/2018 Influenza, Split 02/02/2010,01/04/2009 Influenza, Trivalent, Preser vative Free, Intramuscular 01/08/2013,01/23/2011 Influenza, Unspecified 04/07/2023(Deferr ed: Patient Refused),11/27/2022(Deferred: Patient Refused),04/07/2022(Deferred: Patient Refused),04/07/2021(Deferred: Patient Refused),01/02/2018 Influenza, Whole 01/28/2011 Korean Encephalitis IM 06/24/2012 Meningococcal MCV4P (Menactra) 10/02/2006 Smallpox 05/06/2008 Tdap 12/03/2023,10/02/2006 Typhoid Inactivated 06/24/2012,05/06/2008 Surgical History Surgery Date Site/Laterality Comments LASIK PRK done in 2009 SURGERY SCROTAL / TESTICULAR Left Vericose Vein Medical History Medical History Date Comments GERD (gastroesophageal reflux disease) 04/2016 Need for occupational therap y assessment 12/03/2023 ASSESSMENT: Patient has incr eased functional performance in work, leisure, and ADL activities secondary to HEP for left carpal Tunnel Syndrome. Patient has no barriers to learning. Patient has good rehab potential. Pain increasing but t/n has resolved and pnt has full AROM. strength slightly decreased on left. STGs ongoing.PLAN: Patient educated on home program consisting of;-Heat/cold Family History Medical History Relation Name Comments Heart failure Other uncle Diabetes Paternal Grandmother Relation Name Status Comments Other uncle Paternal Grandmother Social History Tobacco Use Types Packs/Day Years Used Date Smoking Tobacco: Former Cigarettes 0.3 9.1 0 04/07/2009 - 01/05/2017 Passive Smoke Exposure: Never Smokeless Tobacco: Never Tobacco Cessation:Counseling Given: Not Answered Comments:No longer smoke. Alcohol Use Standard Drinks/Week Comments Yes 0 (1 standard drink = 0.6 oz pur e alcohol) PHQ-2 Answer Date Recorded PHQ-2 Total Score (If total score is 3 or more points, staff should administer the PHQ-9) 0 12/13/2024 AUDIT-C Answer Date Recorded Q1: How often do you have a drink containing alc ohol? Monthly or less 02/08/2025 Q2: How many drinks containi ng alcohol do you have on a typical day when you are drinking? 1 or 2 02/08/2025 Q3: How often do you have si x or more drinks on one occasion? Never 02/08/2025 Personal Safety Answer Date Recorded Have you ever been in or are you currently in a harmful physical or emotional relationship or is someone making you feel afraid or unsafe? Denies 02/08/2025 Sex and Gender Information Value Date Recorded Sex Assigned at Not on file Legal Sex Male 2:11 PM CDT Gender Identity Male 06/15/2024 2:03 PM CDT Sexual Orientation Straight 06/15/2024 2: 03 PM CDT Last Filed Vital Signs Vital Sign Reading Time Taken Comments Blood Pressure 115/79 02/08/2025 9:40 AM FOOD WRITER Pulse 69 02/08/2025 9:40 AM FOOD WRITER Temperature 36.6 C (97.9 F) 02/08/2025 9:20 AM FOOD WRITER Respiratory Rate 18 02/08/2025 9:40 AM FOOD WRITER Oxygen Saturation 96% 02/08/2025 9:40 AM FOOD WRITER Inhaled Oxygen Concentration - - Weight 102.1 kg (225 lb) 02/08/2025 8:03 AM FOOD WRITER Height 167.6 cm (5' 6) 01/19/2025 10:59 AM CDT Body Mass Index 36.32 01/19/2025 10:59 AM CDT Plan of Treatment Health Maintenance Due Date Last Done Comments Hepatitis C Screening 1990 Pneumococcal vaccine <65 (1 of 2 - PCV) 2007 Zoster Vaccine (1 of 2) 2007 HPV Vaccines (1 - 3-dose SCDM series) 2015 Covid-19 Vaccine ( - season) 2024 09/20/2021, 11/29/2020, 11/08/2020 Influenza Vaccine (#1) 2025 , 01/25/2019, 01/02/2018, Additional history exists Postponed from 12/06/2024 (Patient declined, but will receive in the future) Depression Screening 12/13/2025 12/13/2024, 12/03/2023, 11/27/2022 Regular Well Visit/Exam 18-64 12/13/2025 12/13/2024, 12/03/2023, 11/27/2022 DTaP/Tdap/Td Vaccine (3 - Td or Tdap) 12/02/2033 12/03/2023, 10/02/2006 Hepatitis B Screening Completed 09/16/2007 , 11/12/2006, 10/06/2006 Varicella Vaccines Discontinued Procedures Procedure Name Priority Date/Time Associated Diagnosis Comments SURGICAL PATHOLOGY Routine 02/08/2025 8:45 AM FOOD WRITER Normal screening colonoscopy Normal esophagogastroduodenoscopy (EGD) ENDO ADD ON COLON BIOPSY 8:40 AM FOOD WRITER Normal screening colonoscopy Normal esophagogastroduodenoscopy (EGD) COLON REMOVAL SNARE 02/08/2025 8:40 AM FOOD WRITER Normal screening colonoscopy Normal esophagogastroduodenoscopy (EGD) ESOPHAGOGASTRODUODENOSCOPY BIOPSY 02/08/2025 8:40 AM FOOD WRITER Normal screening colonoscopy Normal esophagogastroduodenoscopy (EGD) EGD 02/08/2025 8:37 AM FOOD WRITER COLONOSCOPY 02/08/2025 8:36 AM FOOD WRITER TISSUE TRANSGLUTAMINASE, IGA Routine 11:54 AM CDT CELIAC REFLEX PANEL Routine 01/19/2025 11:54 AM CDT Low serum vitamin B12 Family history of celiac disease THYROID FUNCTION CASCADE Routine 8:06 AM CDT Thyroid disorder screen VITAMIN B12 Routine 01/19/2025 8:06 AM CDT B12 deficiency ERYTHROCYTE SEDIMENTATION RATE Routine 01/19/2025 8:06 AM CDT Blood in stool IRON Routine 01/19/2025 8:06 AM CDT Blood in stool EGFR Routine 12/13/2024 9:00 AM CDT Moderate mixed hyperlipidemia not requiring statin therapy DIFFERENTIAL AUTO Routine 12/13/2024 9:00 AM CDT Moderate mixed hyperlipidemia not requiring statin therapy CBC WITH AUTO DIFFERENTIAL Routine 12/13 9:00 AM CDT Moderate mixed hyperlipidemia not requiring statin therapy COMPREHENSIVE METABOLIC PANEL Routine 12/13/2024 9:00 AM CDT Moderate mixed hyperlipidemia not requiring statin therapy HEMOGLOBIN A1C Routine 12/13/2024 9:00 AM CDT Encounter for screening examination for intermediate hyperglycemia and diabetes mellitus LIPID PANEL Routine 12/13/2024 9:00 AM CDT Moderate mixed hyperlipidemia not requiring statin therapy VITAMIN D 25 HYDROXY Routine 12/13/2024 9:00 AM CDT Vitamin D deficiency from Last 3 Months Results * Surgical pathology (02/08/2025 8:45 AM FOOD WRITER) Tissue (Duodenum, Biopsy) 02/08/2025 8:45 AM FOOD WRITER Tissue specimen (specimen) (Gastric/Stomach biopsy) 02/08/2025 8:48 AM FOOD WRITER Tissue specimen (specimen) (Gastric/Stomach biopsy) 02/08/2025 8:49 AM FOOD WRITER Tissue specimen (specimen) (Esophageal biopsy) 02/08/2025 8:50 AM FOOD WRITER Tissue specimen (specimen) (Polyp(s), colon/colorectal, esophageal, gastric) 02/08/2025 9:04 AM FOOD WRITER Tissue specimen (specimen) (Colon, Biopsy) 02/08/2025 9:07 AM FOOD WRITER Tissue specimen (specimen) (Colon, Biopsy) 02/08/2025 9:11 AM FOOD WRITER Narrative PATHOLOGY TEMP LLB FOR [facility] - 02/10/2025 9:37 AM FOOD WRITER [facility] Department of Pathology [address] [place] [address] Note to Patients: This report may contain a detailed description of human tissue sent by a health care provider to the laboratory for pathologic evaluation. The content of this report is essential for diagnosis and may provide important critical findings. This information may be unfamiliar to patients to review without a medical professional present. It is advised that the patient review this report in the presence of a health care provider who can answer questions and explain the details. Final Report Patient Name: ADELINA NAVARRETE : 1990 (Age: 34) Gender: M Address: [address] [place] [address] [place] [address] Hospital #: [id number] Service: Gastro Location: Patient Type: [facility] Taken: 02/08/2025 Received: 02/09/2025 Accessioned: 02/09/2025 Reported: 02/10/2025 Physician(s): Crispin Esparza F.N.P. Diagnosis: A. Duodenum, biopsy - No histopathologic abnormality B. Stomach, antrum, biopsy - Antral mucosa with no histopathologic abnormality C. Stomach, fundus, biopsy - Oxyntic mucosa with no histopathologic abnormality D. Esophagus, GE jct, biopsy - Squamocolumnar mucosa with inactive chronic carditis E. Colon, cecum, biopsy - Tubular adenoma F. Terminal ileum, biopsy - No histopathologic abnormality G. Colon, biopsy - No histopathologic abnormality Giles Palma M.D. Report Electronically Reviewed and Signed Out By Giles Palma M.D. 02/10/2025 09:37:30 Specimen(s) Received: A: Duodenal biopsy B: Antrum biopsy C: Gastric body biopsy D: GE Junction biopsy E: Cecal polyp F: Terminal ileum biopsy G: Random colon biopsies Microscopic Description: Unless gross-only is specified, the final diagnosis for each specimen is based on a microscopic examination of each tissue sample. Clinical History: The patient is a 34-year-old man presenting for a normal screening colonoscopy, normal esophagogastroduodenoscopy. Operative procedure: Esophagogastroduodenoscopy biopsy, colon removal snare, endo add on colon biopsy. Gross Description Received in seven formalin jars labeled with the patient's identifiers. A. Labeled duodenal biopsy are two fragments of soft booker tissue (each measuring 0.3 cm in greatest dimension). Placed between sponges. Labeled A1. Jar 0. B. Labeled antrum biopsy is a single fragment of soft booker tissue (0.5 x 0.4 x 0.2 cm). Placed between sponges. Labeled B1. Jar 0. C. Labeled gastric body biopsy are two fragments of soft booker tissue (0.2-0.5 cm in greatest dimension). Placed between sponges. Labeled C1. Jar 0. D. Labeled GE junction biopsy are multiple irregular fragments of soft booker-white tissue (0.7 x 0.5 x 0.1 cm in aggregate). Placed between sponges. Labeled D1. Jar 0. E. Labeled cecal polyp is a single fragment of soft booker-pink tissue (0.2 x 0.1 x 0.1 cm) admixed with soft yellow vegetable material. Placed between sponges. Labeled E1. Jar 0. F. Labeled terminal ileum biopsy is a single fragment of soft booker-pink tissue (0.5 x 0.4 x 0.2 cm). Placed between sponges. Labeled F1. Jar 0. G. Labeled random colon biopsy are three fragments of soft booker-white tissue (0.2- 0.4 cm in greatest dimension). Placed between sponges. Labeled G1. Jar 0. [facility]/02/09/2025 10:36 [place], PA (A Microscopic slide review and interpretation for this case was performed at [facility], Department of Surgical Pathology, [address] [facility] [place], [place] [id number], [place] [address] CLIA # [id number] us Jacqueline Ram MD LAB PATHOLOGY ORDERABLES Final R esult PATHOLOGY TEMP B FOR [facility] * EGD (02/08/2025 8:37 AM FOOD WRITER) Anatomical Region Laterality Modality Other Narrative Procedure Note Jacqueline Ram MD - 02/08/2025 8:37 AM CST [facility] Patient Name: Adelina Navarrete Procedure Date: 02/08/2025 8:37 AM Date of : 1990 Admit Type: Outpatient Age: 34 Gender: Male Attending MD: Jacqueline Ram M.D., Room: [facility] PROCEDURE 1 Note Status: Finalized Procedure: Upper GI endoscopy Indications: Epigastric abdominal pain, Suspected esophageal reflux, Family history of celiac disease in the first-degree relatives, bowel habit changes, B12 deficiency Referring MD: Zach Miranda Providers: Jacqueline Ram M.D. Medicines: Monitored Anesthesia Care Complications: No immediate complications. Estimated Blood Loss: Estimated blood loss: none. Procedure: Pre-Anesthesia Assessment: - Prior to the procedure, a History and Physicalwas performed, and patient medications and allergieswere reviewed. The patient is competent. The risks and benefits of the procedure and the sedation optionsand risks were discussed with the patient. Allquestions were answered and informed consent was obtained. Patient identification and proposed procedure were verified by the physician, the nurse, the anesthesiologist, the partition assembler and thetechnician in the pre-procedure area in the procedure room inthe endoscopy suite. Mental Status Examination: alertand oriented. Airway Examination: normal oropharyngeal airway and neck mobility. Respiratory Examination: clear to auscultation. CV Examination: normal.After reviewing the risks and benefits, the patient was deemed in satisfactory condition to undergo the procedure. The anesthesia plan was to use monitored anesthesia care (MAC). Immediately prior to administration of medications, the patient was re-assessed for adequacy to receive sedatives. The heart rate, respiratory rate, oxygen saturations, blood pressure, adequacy of pulmonary ventilation,and response to care were monitored throughout the procedure. The physical status of the patient was re-assessed after the procedure. The benefits, risks, and alternatives to theprocedure and sedation were discussed and informed consentwas obtained. The scope was passed under direct vision. The GIF-H190 UPPER ENDOSCOPY was introduced through the mouth, and advanced to the second part of duodenum. The upper GI endoscopy was accomplished without difficulty. The patient tolerated the procedure well. The upper GI endoscopy was accomplished without difficulty. The patienttolerated the procedure well. Findings: The upper third of the esophagus and middle third of the esophaguswere normal. The esophagus and gastroesophageal junction were examined with white light and narrow band imaging (NBI) from a forward view andretroflexed position. There were esophageal mucosal changes classified asBarrett's stage C0-M1 per Boston criteria. These changes involved the mucosaalong an irregular Z-line (38 cm from the incisors). Tongues ofsalmon-colored mucosa were present. The maximum longitudinal extent of theseesophageal mucosal changes was 1 cm in length. Mucosa was biopsied with a cold forceps for histology in a targeted manner and in 4 quadrants at intervals of 1 cm. One specimen bottle was sent to pathology. A small hiatal hernia was present. Diffuse mildly erythematous mucosa was found in the entire examined stomach. Several biopsies were obtained in the gastric body and inthe gastric antrum with cold forceps for histology. The exam of the stomach was otherwise normal. The examined duodenum was normal. Biopsies were taken with a cold forceps for histology. Impression: - Normal upper third of esophagus and middle thirdof esophagus. - Esophageal mucosal changes rule out Rizzo'sstage C0-M1 per Boston criteria. Biopsied. - Small hiatal hernia. - Erythematous mucosa in the stomach. - Normal examined duodenum. Biopsied. - Several biopsies were obtained in the gastricbody and in the gastric antrum. Recommendation: - Await pathology results. - No ibuprofen, naproxen, or other non-steroidal anti-inflammatory drugs. - Follow an antireflux regimen. - Return to GI office as previously scheduled. Signed electronically by Dr. Ram Jacqueline Ram M.D. 02/08/2025 9:25:24 AM . Number of Addenda: 0 Note Initiated On: 02/08/2025 8:37 AM us Jacqueline Ram MD ENDOSCOPY PROCEDURES Final Resul t * Colonoscopy (02/08/2025 8:36 AM FOOD WRITER) Anatomical Region Laterality Modality Other Narrative Procedure Note Jacqueline Ram MD - 02/08/2025 8:36 AM CST [facility] Patient Name: Adelina Navarrete Procedure Date: 02/08/2025 8:36 AM Date of : 1990 Admit Type: Outpatient Age: 34 Gender: Male Attending MD: Jacqueline Ram M.D., Room: [facility] EOC PROCEDURE 1 Note Status: Finalized Procedure: Colonoscopy Indications: Lower abdominal pain, Hematochezia, Change in bowel habits, B12 deficiency Referring MD: Annmarie Quarles, F.N.P. Providers: Jacqueline Ram M.D. Medicines: Monitored Anesthesia Care Complications: No immediate complications. Estimated Blood Loss: Estimated blood loss: none. Procedure: Pre-Anesthesia Assessment: - Prior to the procedure, a History and Physicalwas performed, and patient medications and allergieswere reviewed. The patient is competent. The risks and benefits of the procedure and the sedation optionsand risks were discussed with the patient. Allquestions were answered and informed consent was obtained. Patient identification and proposed procedure were verified by the physician, the nurse, the anesthesiologist, the partition assembler and thetechnician in the pre-procedure area in the procedure room inthe endoscopy suite. Mental Status Examination: alertand oriented. Airway Examination: normal oropharyngeal airway and neck mobility. Respiratory Examination: clear to auscultation. CV Examination: normal.After reviewing the risks and benefits, the patient was deemed in satisfactory condition to undergo the procedure. The anesthesia plan was to use monitored anesthesia care (MAC). Immediately prior to administration of medications, the patient was re-assessed for adequacy to receive sedatives. The heart rate, respiratory rate, oxygen saturations, blood pressure, adequacy of pulmonary ventilation,and response to care were monitored throughout the procedure. The physical status of the patient was re-assessed after the procedure. The benefits, risks and alternatives of theprocedure and sedation were discussed and informed consentwas obtained. All questions were answered. Please referto the signed informed consent document in the medical record. The scope was passed under direct vision.The [id number]-[id number] COLONOSCOPE was introduced through theanus and advanced to the terminal ileum, with identification of the appendiceal orifice and IC valve. The colonoscopy was performed without difficulty. The patient tolerated the procedurewell. The quality of the bowel preparation was evaluated using the BBPS ([place] Bowel Preparation Scale)with scores of: Right Colon = 2 (minor amount ofresidual staining, small fragments of stool and/or opaque liquid, but mucosa seen well), Transverse Colon = 2 (minor amount of residual staining, small fragmentsof stool and/or opaque liquid, but mucosa seen well)and Left Colon = 2 (minor amount of residual staining, small fragments of stool and/or opaque liquid, but mucosa seen well). The total BBPS score equals 6. Findings: The perianal examination was normal. A 3 mm polyp was found in the cecum. The polyp was sessile. The polyp was removed with a cold snare. Resection was complete, and retrievalwas complete. Normal mucosa was found in the entire colon otherwise. Biopsies were taken with a cold forceps for histology. Non-bleeding internal hemorrhoids were found during retroflexion. The terminal ileum appeared mildly nodular. A biopsy was taken with a cold forceps for histology. Impression: - One 3 mm polyp in the cecum, removed with a cold snare. Resected and retrieved. - Normal mucosa in the entire examined colon otherwise. Biopsied. - Non-bleeding internal hemorrhoids. - The examined portion of the ileum was nodular. Biopsied. Recommendation: - Await pathology results. - No ibuprofen, naproxen, or other non-steroidal anti-inflammatory drugs for 1 week after polypremoval. - Repeat colonoscopy for surveillance based on pathology results. - Return to GI office as previously scheduled. Signed electronically by Dr. Ram Jacqueline Ram M.D. 02/08/2025 9:31:22 AM . Number of Addenda: 0 Note Initiated On: 02/08/2025 8:36 AM us Jacqueline Ram MD ENDOSCOPY PROCEDURES Final Resul t * Celiac reflex panel (01/19/2025 11:54 AM CDT) IgA 178 61 - 356 mg/dL [facility] Celiac disease interpretation See Footnote BJ FERNANDES Comment: See Comment: Negative serology. Celiac disease unlikely. However, approximately 10% of patients with celiac disease are seronegative. Also, patients who are already adhering to a gluten-free diet may be seronegative. If celiac disease is highly clinically suspected, consider HLA-DQ typing. Test Performed by: [facility] [place] [address] Gaming Pit Boss: Kurtis Carrero Ph.D.; CLIA# [id number] Blood 01/19/2025 11:5 4 AM CDT 01/19/2025 2:32 PM CDT Dev FERNANDES - 01/21/2025 10:52 PM CDT sent to lab; 01/19/2025 15:16:29 CDT [id number] received in lab; 01/21/2025 17:16:11 CDT [id number] us Jacqueline Ram MD LAB BLOOD ORDERABLES Final Resul t Performing Organization Address City/State/[facility] Co de Phone Number BJ [address] [place] [address] [facility] * Tissue transglutaminase IgA (TGG-IgA Ab) (01/19/2025 11:54 AM CDT) TTG ab, IgA 1.3 <4.0 (Negative) units/mL Comment: Test Performed by: [facility] [address] [place] [address] Gaming Pit Boss: Kurtis Carrero Ph.D.; CLIA# [id number] Interpretive data Negative: <15 units/mL Positive: > or equal to 15 units/mL Current interpretive data was last revised on 2016. Testing performed by: [facility], [address] [place] [address] Blood 01/19/2025 11:5 4 AM CDT 01/19/2025 2:32 PM CDT Jacqueline Ram MD LAB BLOOD ORDERABLES Final Resul t Performing Organization Address [facility] Co de Phone Number BJ [address] [place] [address] * Thyroid Function [place] (01/19/2025 8:06 AM CDT) Pathologist [facility] TSH 2.07 0.30 - 4.20 mcIUnit/mL Blood 01/19/2025 8:06 AM CDT 01/19/2025 11:19 AM CDT us Annmarie Quarles NP LAB BLOOD ORDERABLES Final Resul t Performing Organization Address [facility] Co de Phone Number BJ [address] [place] [address] * Erythrocyte sedimentation rate (01/19/2025 8:06 AM CDT) Pathologist [facility] Erythrocyte sedimentation rate 6 1 - 15 mm/hr Blood 01/19/2025 8:06 AM CDT 01/19/2025 11:19 AM CDT us Annmarie Quarles FINANCIAL SALES PROFESSIONAL LAB BLOOD ORDERABLES Final Resul t Performing Organization Address City/[facility] Co de Phone Number ITERA[address] [place] [address] * Iron level (01/19/2025 8:06 AM CDT) Pathologist [facility] Iron 88 50 - 150 mcg/dL Blood 01/19/2025 8:06 AM CDT 01/19/2025 11:19 AM CDT us Annmarie Quarles FINANCIAL SALES PROFESSIONAL LAB BLOOD ORDERABLES Final Resul t Performing Organization Address [facility] de Phone Number TI[address] [place] [address] * (ABNORMAL) Vitamin B12 (01/19/2025 8:06 AM CDT) Pathologist [facility] Vitamin B12 <150(L) 230 - 1,250 pg/mL Blood 01/19/2025 8:06 AM CDT 01/19/2025 11:19 AM CDT us Annmarie Quarles FINANCIAL SALES PROFESSIONAL LAB BLOOD ORDERABLES Final Resul t Performing Organization Address [facility] Co de Phone Number [address] [place] [address] * eGFR (12/13/2024 9:00 AM CDT) eGFR >90 >=60 mL/min/1. 73 m2 Comment: Interpretive Data Reference Interval Normal >/= 90 mL/min/1.73m2 Mildly decreased* 60 - 89 mL/min/1.73m2 Mildly to moderately decreased 45 - 59 mL/min/1.73m2 Moderately to severely decreased 30 - 44 mL/min/1.73m2 Severely decreased 15 - 29 mL/min/1.73m2 Kidney Failure < 15 mL/min/1.73m2 *Relative to young adult level Estimated glomerular filtration rate is determined by the 2020 CKD-EPI equation recommended by the National Kidney Foundation (A Unifying Approach to GFR Estimation: Recommendations of the NKF-ASK Task Force on Reassessing the Inclusion of Race in Diagnosing Kidney Disease, JASN 2020). The CKD-EPI equation should not be used for patients with unstable renal function and has not been validated in children and those over 70. Current interpretive data was last reviewed 2021. Blood 12/13/2024 9:00 AM CDT 12/13/2024 10:33 AM CDT us Annmarie Quarles NP LAB BLOOD ORDERABLES Final Resul t [place] [id number] [facility] [place] [address] * Differential, auto (12/13/2024 9:00 AM CDT) Neutrophil abs 4.01 1.50 - 6.50 K/cumm Imm gran abs 0.03 0.00 - 0.10 K/cumm [facility] Lymphocyte abs 2.39 0.80 - 3.30 K/cumm [facility] Monocyte abs 0.58 0.20 - 0.80 K/cumm [facility] Eosinophil abs 0.16 0.00 - 0.50 K/cumm [facility] Basophil abs 0.04 0.00 - 0.10 K/cumm [facility] Neutrophil pct 55.7 % [facility] Comment: Interpretive Data Percent cell count reference ranges are not reported, since discordance with absolute values may lead to misinterpretation of CBC data. Current Interpretive Data was last revised on 2017. Imm gran pct 0.4 % [facility] Comment: Interpretive Data Percent cell count reference ranges are not reported, since discordance with absolute values may lead to misinterpretation of CBC data. Current Interpretive Data was last revised on 2017. Lymphocyte pct 33.1 % [facility] Comment: Interpretive Data Percent cell count reference ranges are not reported, since discordance with absolute values may lead to misinterpretation of CBC data. Current Interpretive Data was last revised on 2017. Monocyte pct 8.0 % [facility] Comment: Interpretive Data Percent cell count reference ranges are not reported, since discordance with absolute values may lead to misinterpretation of CBC data. Current Interpretive Data was last revised on 2017. Eosinophil pct 2.2 % [facility] Comment: Interpretive Data Percent cell count reference ranges are not reported, since discordance with absolute values may lead to misinterpretation of CBC data. Current Interpretive Data was last revised on 2017. Basophil pct 0.6 % [facility] Comment: Interpretive Data Percent cell count reference ranges are not reported, since discordance with absolute values may lead to misinterpretation of CBC data. Current Interpretive Data was last revised on 2017. Blood 12/13/2024 9:00 AM CDT 12/13/2024 10:33 AM CDT us Annmarie Quarles FINANCIAL SALES PROFESSIONAL LAB BLOOD ORDERABLES Final Resul t [place] [address] [facility] [place] [address] * (ABNORMAL) CBC with auto differential (12/13/2024 9:00 AM CDT) WBC 7.21 3.80 - 9.90 K/cumm Hgb 14.2 13.0 - 17.5 g/dL [facility] Hct 42.5 38.9 - 50.3 % [facility] Plt 322 150 - 400 K/cumm [facility] MPV 8.4(L) 9.1 - 12.3 fL [facility] RBC 5.01 4.30 - 5.80 M/cumm [facility] MCV 84.8 81.3 - 96.4 fL [facility] MCH 28.3 27.1 - 33.3 pg [facility] MCHC 33.4 32.3 - 35.7 g/dL [facility] RDW CV 12.3 11.1 - 14.9 % [facility] RDW SD 37.2 35.7 - 48.1 fL [facility] NRBC abs 0.00 0.00 - 0.01 K/cumm [facility] Blood 12/13/2024 9:00 AM CDT 12/13/2024 10:33 AM CDT us Annmarie Quarles FINANCIAL SALES PROFESSIONAL LAB BLOOD ORDERABLES Final Resul t Performing Organization Address City/[facility] Co de Phone Number BJ [address] [place] [address] * (ABNORMAL) Vitamin D 25 hydroxy (12/13/2024 9:00 AM CDT) Vitamin D 25-OH 20.0(L) 30.0 - 80.0 ng/mL Blood 12/13/2024 9:00 AM CDT 12/13/2024 10:33 AM CDT us Annmarie Quarles NP LAB BLOOD ORDERABLES Final Resul t Performing Organization Address [facility] de Phone Number [address] [address] * Hemoglobin A1c (12/13/2024 9:00 AM CDT) Pathologist [facility] Hgb A1C 5.4 4.0 - 5.6 % Estimated Average Glucose 108 mg/dL BJ Comment: The ADA recommends reporting an estimated Average Glucose (eAG) with all Hemoglobin A1c results using the equation derived from a study of 507 normal and diabetic adults. Minority populations were underrepresented and children were not included. (Diabetes Care 31:9155-7993, 2008). The eAG is not equivalent to a fasting glucose. Blood 12/13/2024 9:00 AM CDT 12/13/2024 10:33 AM CDT us Annmarie Quarles NP LAB BLOOD ORDERABLES Final Resul t Performing Organization Address City/[facility] Co de Phone Number [place] [id number] [facility] [place] [address] * (ABNORMAL) Lipid panel (12/13/2024 9:00 AM CDT) Pathologist [facility] Cholesterol 229(H) 30 - 199 mg/dL Comment: Interpretive Data Ages < or = 19 years Acceptable: <170 mg/dL Borderline high: 170-199 mg/dL High: >or= 200 mg/dL Ages > or = 20 years Desirable: <200 mg/dL Borderline high: 200-239 mg/dL High: >or= 240 mg/dL Literature References: 1. Expert Panel on Integrated Guidelines for Cardiovascular Health and Risk Reduction in Children and Adolescents. Pediatrics 2011;128:S213 2. NCEP Expert Panel. Circulation 2004;110:227 Current Interpretive Data was last revised on 2017. Triglycerides 163(H) <=149 mg/dL BJ Comment: Interpretive Data Ages < or = 9 years Acceptable: <75 mg/dL Borderline high: 75-99 mg/dL High: >or= 100 mg/dL Ages 10 to 20 years Acceptable: <90 mg/dL Borderline high: 90-129 mg/dL High: >or= 130 mg/dL Ages > or = 20 years Desirable: <150 mg/dL Borderline high: 150-199 mg/dL High: 200-499 mg/dL Very high: >or= 499 mg/dL Literature References: 1. Expert Panel on Integrated Guidelines for Cardiovascular Health and Risk Reduction in Children and Adolescents. Pediatrics 2011;128:S213 2. NCEP Expert Panel. Circulation 2004;110:227 Current Interpretive Data was last revised on 2017. HDL 37(L) >=40 mg/dL BJ Comment: Interpretive Data Ages < or = 19 years Acceptable: >45 mg/dL Borderline low: 40-45 mg/dL Low: <40 mg/dL Ages > or = 20 years Desirable: >or= 60 mg/dL Low: <40 mg/dL Literature References: 1. Expert Panel on Integrated Guidelines for Cardiovascular Health and Risk Reduction in Children and Adolescents. Pediatrics 2011;128:S213 2. NCEP Expert Panel. Circulation 2004;110:227 Current Interpretive Data was last revised on 2017. LDL, calculated 162(H) <=129 mg/dL BJ Comment: Interpretive Data Ages < or = 19 years Acceptable: <110 mg/dL Borderline high: 110-129 mg/dL High: >or= 130 mg/dL Ages > or = 20 years Optimal: <100 mg/dL Near optimal: 100-129 mg/dL Borderline high: 130-159 mg/dL High: >160 mg/dL Calculated using the Hayden LDL-C estimating equation. This equation was implemented on 2023. Prior to this date LDL-C was estimated using the Friedewald equation. Literature References: 1. Expert Panel on Integrated Guidelines for Cardiovascular Health and Risk Reduction in Children and Adolescents. Pediatrics 2011;128:S213 2. NCEP Expert Panel. Circulation 2004;110:227 3. Hayden Garduno et al. NANCY Cardiol. 2020 August 05;5(5):540-548. doi: 10.1001/jamacardio.2020.0013 Current Interpretive Data was last revised on 2023. Non-HDL Cholesterol 192 mg/dL BJ Comment: Interpretive Data Ages < or = 19 years Acceptable: <120 mg/dL Borderline high: 120-144 mg/dL High: >145 mg/dL Ages > or = 20 years When triglycerides are >200 mg/dL, Non-HDL cholesterol is a secondary target of therapy with treatment goals that are 30 mg/dL greater than the LDL cholesterol target. Literature References: 1. Expert Panel on Integrated Guidelines for Cardiovascular Health and Risk Reduction in Children and Adolescents. Pediatrics 2011;128:S213 2. NCEP Expert Panel. Circulation 2004;110:227 Current Interpretive Data was last revised on 2017. Chol/HDL ratio 6 BJ Blood 12/13/2024 9:00 AM CDT 12/13/2024 10:33 AM CDT Annmarie Quarles FINANCIAL SALES PROFESSIONAL LAB BLOOD ORDERABLES Final Resul t [place] [address] [facility] Department [place] [address] * Comprehensive metabolic panel (12/13/2024 9:00 AM CDT) Sodium 140 135 - 145 mmol/L Potassium, pl 4.1 3.3 - 4.9 mmol/L [facility] Chloride 102 97 - 110 mmol/L [facility] CO2 25 22 - 32 mmol/L [facility] Anion gap 13 2 - 15 mmol/L [facility] BUN 19 6 - 25 mg/dL [facility] Creatinine 0.88 0.80 - 1.30 mg/dL [facility] Glucose 101 70 - 199 mg/dL [facility] Comment: Interpretive Data Fasting glucose >/= 126 mg/dl is diagnostic for diabetes. Fasting is defined as no caloric intake for at least 8 hours. Fasting glucose between 100 mg/dl to 125 mg/dl is diagnostic of prediabetes. In a patient with classic symptoms of hyperglycemia or hyperglycemic crisis, a random glucose >/= 200 mg/dl is diagnostic for diabetes. In the absence of unequivocal hyperglycemia, results should be confirmed by repeat testing. The classification and Diagnosis of Diabetes Diabetes Care 202; 46: S19-S40. Current interpretive data was last revised 2022. Calcium 9.8 8.5 - 10.3 mg/dL [facility] Bilirubin, total 0.4 0.1 - 1.2 mg/dL [facility] Protein, pl 7.2 6.5 - 8.5 g/dL [facility] Albumin 4.5 3.5 - 5.0 g/dL [facility] Alk phos 75 40 - 130 Units/L [facility] ALT 39 7 - 55 Units/L [facility] AST 21 10 - 50 Units/L [facility] Blood 12/13/2024 9:00 AM CDT 12/13/2024 10:33 AM CDT Annmarie Quarles NP LAB BLOOD ORDERABLES Final Resul t [facility] [address] [facility] Department [place] [address] from Last 3 Months [place] [address] [facility] CHOICE [employer] [facility] HMO/PPO Address: [address] [address] [place] [address] [facility] CHO[employer] [facility] HMO/PPO Address: [address] [address] [place] [address] [facility] CHO[employer] [facility] HMO/PPO Address: [address] [place] [address] Care Teams Calender Operator Relationship Specialty Start Date End Date Annmarie Quarles NP [address] [address] PCP - General Family Medicine 11/27/22
--- OUTSIDE RECORDS SUMMARY | 2025-03-05 17:36 | XMS_ITS | Encounter Summary ---
Author Organization [facility] Healthcare Address [address] [place] [address] Care Team Providers Care Manager Gyn Name Role Phone Annmarie Quarles NP Primary Care Provider [phone] Encounter Details Date Type Department Care Team (Latest Contact Info) Description 01/24/2025 Results Follow-Up [facility] Medical Group Gastroenterology at [address] [place] [address] Jacqueline Ram MD [address] [facility] [address] [place] [address] Celiac reflex panel, Tissue transglutaminase IgA (TGG-IgA Ab) Social History Tobacco Use Types Packs/Day Years Used Date Smoking Tobacco: Former Cigarettes 0.3 9.1 0 04/07/2009 - 01/05/2017 Passive Smoke Exposure: Never Smokeless Tobacco: Never Comments:No longer smoke. PHQ-2 Answer Date Recorded PHQ-2 Total Score (If total score is 3 or more points, staff should administer the PHQ-9) 0 12/13/2024 AUDIT-C Answer Date Recorded Q1: How often do you have a drink containing alc ohol? Monthly or less 01/25/2025 Q2: How many drinks containi ng alcohol do you have on a typical day when you are drinking? 1 or 2 01/25/2025 Q3: How often do you have si x or more drinks on one occasion? Never 01/25/2025 Sex and Gender Information Value Date Recorded Sex Assigned at Not on file Legal Sex Male 2:11 PM CDT Gender Identity Male 06/15/2024 2:03 PM CDT Sexual Orientation Straight 06/15/2024 2: 03 PM CDT documented as of this encounter Functional Status * AUDIT-C Score Answer Date of Assessment Author 1 01/25/2025 10:47 AM LENOT Taylor Tinoco RN * Alcohol Use Question Answer Date of Assessment Author Q1: How often do you have a drink containing alcohol? Monthly or less 01/25/2025 10:47 AM CDT Spencer Tinoco RN Q2: How many drinks containing alcohol do you have on a typical day when you are drinking? 1 or 2 01/25/2025 10:47 AM CDT Taylor Tinoco R N Q3: How often do you have six or more drinks on one occasion? Never 01/25/2025 10:47 AM LENOT Taylor Tinoco R N documented as of this encounter Miscellaneous Notes * Result Encounter Note - Jacqueline Ram MD - 01/24/2025 8:39 AM CDT Cc: AdXpose message documented in this encounter Plan of Treatment Not on file documented as of this encounter Visit Diagnoses Not on filedocumented in this encounter Care Teams Manager Gyn Relationship Specialty Start Date End Date Annmarie Quarles NP [address] [place] [address] PCP - General Family Medicine 11/27/22 documented as of this encounter
--- OUTSIDE RECORDS SUMMARY | 2025-03-05 17:36 | XMS_ITS | Clinical Summary ---
Author Organization [facility] Address [address] [place] [address] Care Team Providers Care Labor Relations Director Name Role Phone Annmarie Quarles PATIENT CARE COORDINATOR Primary Care Provider [phone] Allergies No known active allergies Medications omeprazole 20 MG capsuleIndicati ons:Epigastric pain Take 1 capsule (20 mg total) by mouth daily. 30 capsule 2 04/11/2020 Active Active Problems Problem Noted Date Diagnosed Date Gastroesophageal reflux dise ase, esophagitis presence not specified 04/08/2019 Migraine without aura 10/31/2017 Overview (04/03/2018): Transitioned From: Atypical migraine Tension headache 07/02/2017 Encounters Date Type Department Care Team Description 01/01/2025 7:01 PM CDT - 01/01/2025 9:09 PM CDT Emergency [facility] Emergency Room [address] [place] [address] Omari Sotelo MD Blood In Stool Discharge Disposition: Home or Self Care (Routine Discharge) 01/01/2025 Travel from Last 3 Months Immunizations Immunization Administration Dates Next Due Fluzone 6 Months+ Quad (0.5 mL Prefilled Syringe ) 01/25/2019 Influenza Adult (Generic) 01/02/2018 Social History Tobacco Use Types Packs/Day Years Used Date Smoking Tobacco: Former Cigarettes Q uit: 2017 Smokeless Tobacco: Never Alcohol Use Standard Drinks/Week Comments Yes 0 (1 standard drink = 0.6 oz pur e alcohol) social Education Answer Date Recorded What is the highest level of school you have completed or the highest degree you have received? Some college, no degree 04/08/2018 Sex and Gender Information Value Date Recorded Sex Assigned at Not on file Legal Sex Male 2:32 PM CDT Gender Identity Not on file Sexual Orientation Not on file Occupation Industry Job Start Date Job End Date Not on file Not on file Not on file Not on file Last Filed Vital Signs Vital Sign Reading Time Taken Comments Blood Pressure 123/88 01/01/2025 7:07 PM CDT Pulse 74 01/01/2025 7:07 PM CDT Temperature 37.3 C (99.1 F) 01/01/2025 7:07 PM CDT Respiratory Rate 14 01/01/2025 7:07 PM CDT Oxygen Saturation 92% 01/01/2025 7:30 PM CDT Inhaled Oxygen Concentration - - Weight 102.1 kg (225 lb) 01/01/2025 7:07 PM CDT Height 167.6 cm (5' 6) 01/01/2025 7:07 PM CDT Body Mass Index 36.32 01/01/2025 7:07 PM CDT Plan of Treatment Health Maintenance Due Date Last Done Comments Annual Physical 1991 Hepatitis C 2006 HPV Vaccines (1 - 3-dose SCDM series) 2015 COVID-19 Vaccine ( season) 2024 Influenza Adult (#1) 2025 03/04/2022, 01/25/2019, 01/02/2018, Additional history exists DTaP, Tdap and Td Vaccines (3 - Td or Tdap) 12/02/2033 12/03/2023, 10/02/2006 Meningococcal Vaccine Completed 10/02/2006 Hepatitis B Vaccines Completed 09/16/2007, 11/12/2006, 10/06/2006 Hepatitis A Vaccines Completed 04/19/2008, 09/16/2007, 10/06/2006 Meningococcal B Vaccine Aged Out No l onger eligible based on patient's age to complete this topic Pneumococcal Vaccine: Pediatrics (0 to 5 Years) and At-Risk Patients (6 to 49 Years) Aged Out No longer eligible based on patient's age to complete this topic RSV Immunizations Under 20 Months Aged Out No longer eligible based on patient's age to complete this topic Procedures Procedure Name Priority Date/Time Associated Diagnosis Comments CT ABD+PEL W CON STAT 01/01/2025 7:55 PM CDT HC LIPASE STAT 01/01/2025 7:10 PM CDT HC COMPREHENSIVE METABOL PANEL STAT 01/01/2025 7:10 PM CDT HC CBC AUTO W/AUTO DIFF STAT 01/01/2025 7:10 PM CDT from Last 3 Months Results * CT ABD+PEL W IV CON ONLY (01/01/2025 7:55 PM CDT) Anatomical Region Laterality Modality Abdomen Computed Tomogra phy 01/01/2025 8:03 PM CDT Impressions 01/01/2025 8:06 PM CDT IMPRESSION: No definite acute CT findings within the abdomen or pelvis. Ordered By: OMARI SOTELO Interpreted By: Aleksandr Cox MD, 01/01/2025 8:03 PM Narrative 01/01/2025 8:06 PM CDT [facility] [address] [facility]. [place] [id number] Examination: CT ABD+PEL W CON, 01/01/2025 7:45 PM. Technique: Computed tomographic images of the abdomen and pelvis were obtained after the administration of 75 mL of Isovue-370 injected to the left antecubital fossa IV, without evidence of an adverse reaction. Additional coronal and sagittal reformatted images were generated at a separate workstation. A dose lowering technique was used for this procedure, which may include, but is not limited to, dose reduction technique, automated exposure control, the use of iterative reconstruction, and ALARA (As Low As Reasonably Achievable) / Image Gently techniques. Clinical history: LLQ pain, increased blood in stool today (x 2 episodes). intermittent x 2 months. w/ abdominal cramping and nausea. Comparison: None available Findings: Lung bases are well aerated. Calcified granuloma within the left lower lobe. Heart size is normal. ABDOMEN: Liver is normal in size and contour. Gallbladder is negative. No bile duct dilation. Pancreas is negative. Spleen is normal in size. No adrenal mass. No perinephric abnormality. No hydronephrosis. No nephrolithiasis. Caliber the abdominal aorta is normal. No retroperitoneal adenopathy. PELVIS: The appendix is normal. There is no bowel dilation or wall thickening. No free fluid within the abdomen or pelvis. No free intraperitoneal air. Urinary bladder is grossly normal. Pelvic phleboliths. No acute fracture nor destructive process of the visualized osseous structures. Procedure Note Aleksandr Cox MD - 01/01/2025 [facility] [address] [facility] [address] Examination: CT ABD+PEL W CON, 01/01/2025 7:45 PM. Technique: Computed tomographic images of the abdomen and pelvis wereobtained after the administration of 75 mL of Isovue-370 injected to theleft antecubital fossa IV, without evidence of an adverse reaction.Additional coronal and sagittal reformatted images were generated at [employer] workstation. A dose lowering technique was used for thisprocedure, which may include, but is not limited to, dose reductiontechnique, automated exposure control, the use of iterativereconstruction, and ALARA (As Low As Reasonably Achievable) / Image Gentlytechniques. Clinical history: LLQ pain, increased blood in stool today (x 2 episodes).intermittent x 2 months. w/ abdominal cramping and nausea. Comparison: None available Findings: Lung bases are well aerated. Calcified granuloma within the left lowerlobe. Heart size is normal. ABDOMEN: Liver is normal in size and contour. Gallbladder is negative. Nobile duct dilation. Pancreas is negative. Spleen is normal in size. Noadrenal mass. No perinephric abnormality. No hydronephrosis. Nonephrolithiasis. Caliber the abdominal aorta is normal. No retroperitonealadenopathy. PELVIS: The appendix is normal. There is no bowel dilation or wallthickening. No free fluid within the abdomen or pelvis. No freeintraperitoneal air. Urinary bladder is grossly normal. Pelvicphleboliths. No acute fracture nor destructive process of the visualizedosseous structures. IMPRESSION: No definite acute CT findings within the abdomen or pelvis. Ordered By: OMRAI SOTELO Interpreted By: Aleksandr Cox MD, 01/01/2025 8:03 PM us Omari Sotelo MD CT Final Resul t * COMPREHENSIVE METABOLIC PANEL (01/01/2025 7:10 PM CDT) GLUCOSE 93 70 - 99 MG/DL 01/01/2025 7:51 PM CDT [facility] BUN 18 7 - 18 MG/DL 01/01/2025 7:51 PM CDT [facility] CREATININE S/P/B 0.97 0.7 - 1.3 MG/DL 01/01/2025 7:51 PM CDT [facility] SODIUM S/P/B 138 136 - 145 MMOL/L 01/01/2025 7:51 PM CDT [facility] POTASSIUM S/P/B 3.8 3.5 - 5.1 MMOL/L 01/01/2025 7:51 PM CDT [facility] CHLORIDE S/P/B 102 100 - 108 MMOL/L 01/01/2025 7:51 PM CDT [facility] CO2 27.5 21 - 32 MMOL/L 01/01/2025 7:51 PM CDT [facility] CALCIUM S/P/B 8.8 8.5 - 10.1 MG/DL 01/01/2025 7:51 PM CDT [facility] BILIRUBIN TOTAL S/P/B 0.3 0.2 - 1.2 MG/DL 01/01/2025 7:51 PM T [facility] TOTAL PROTEIN S/P/B 7.3 6.4 - 8.2 G/DL 01/01/2025 7:51 PM CDT [facility] ALBUMIN S/P/B 3.9 3.4 - 5.0 G/DL 01/01/2025 7:51 PM CDT [facility] AST 19 15 - 37 U/L 01/01/2025 7:51 PM CDT [facility] ALT 53 16 - 60 U/L 01/01/2025 7:51 PM CDT [facility] ALKALINE PHOSPHATASE S/P/B 89 50 - 136 U/L 01/01/2025 7:51 PM CDT [facility] ANION GAP 8.5 5 - 15 MMOL/L 01/01/2025 7:51 PM T [facility] BUN CREATININE RATIO 18.6 6 - 26 01/01/2025 7:51 PM T [facility] A/G RATIO 1.1 1.0 - 2.0 RATIO 01/01/2025 7:51 PM T [facility] GFR ESTIMATE >90 >90 ML/MIN/1.7 3 M2 01/01/2025 7:51 PM T [facility] Comment: NOTE: eGFR is not calculated for patients <18 years of age. This is an estimated GFR calculation using the new CKD EPI creatinine equation without race and so does not require a correction factor for race. This estimated GFR should not be used for calculating drug doses. 01/01/2025 7:10 PM CDT us Omari Sotelo MD LABORATORY Final Resul t [facility] [address] [place] [address], [place] [phone] * (ABNORMAL) CBC W/DIFF AUTOMATED (01/01/2025 7:10 PM CDT) WBC 10.36 4.4 - 11.0 x10'3/uL 01/01/2025 7:40 PM CDT [facility] RBC 4.75 4.50 - 5.90 x10'6/uL 01/01/2025 7:40 PM CDT [facility] HGB 14.0 14.0 - 17.5 G/DL 01/01/2025 7:40 PM CDT [facility] HCT 40.2(L) 41.5 - 50.4 % 01/01/2025 7:40 PM CDT [facility] MCV 84.6 80.0 - 96.0 FL 01/01/2025 7:40 PM CDT [facility] MCH 29.5 26.5 - 31.4 PG 01/01/2025 7:40 PM T [facility] MCHC 34.8 31.9 - 34.8 G/DL 01/01/2025 7:40 PM CDT [facility] RDW 12.6 12.3 - 14.3 % 01/01/2025 7:40 PM CDT [facility] PLT 326 151 - 353 x10'3/uL 01/01/2025 7:40 PM T [facility] MPV 8.4(L) 9.7 - 11.9 FL 01/01/2025 7:40 PM T [facility] RBC MORPHOLOGY NORMAL 01/01/2025 7:40 PM T [facility] PLT MORPH. NORMAL 01/01/2025 7:40 PM CDT [facility] WBC MORPHOLOGY NORMAL 01/01/2025 7:40 PM CDT [facility] LYMPHOCYTES % 36.6 15.8 - 45.0 % 01/01/2025 7:40 PM CDT [facility] NEUTROPHILS % 51.1 42.1 - 71.9 % 01/01/2025 7:40 PM CDT [facility] MONOCYTES % 8.8 5.7 - 12.5 % 01/01/2025 7:40 PM CDT [facility] EOSINOPHILS 2.5 0.0 - 5.6 % 01/01/2025 7:40 PM CDT [facility] BASOPHILS 0.5 0.0 - 1.3 % 01/01/2025 7:40 PM CDT [facility] ABS. NEUTROPHILS 5.30 1.40 - 6.00 x10'3/uL 01/01/2025 7:40 PM CDT [facility] IMMATURE GRANS % 0.5 0.0 - 0.5 % 01/01/2025 7:40 PM CDT [facility] ABS. LYMPHOCYTES 3.79 0.80 - 4.70 x10'3/uL 01/01/2025 7:40 PM CDT [facility] 01/01/2025 7:10 PM CDT us Omari Sotelo MD LABORATORY Final Resul t Performing Organization Address City/[facility]/ZIP Co de Phone Number [facility] [address] [place] [address], [place] [phone] * LIPASE (01/01/2025 7:10 PM CDT) LIPASE 27 16 - 77 UNITS/L 01/01/2025 7:51 PM CDT [facility] 01/01/2025 7:10 PM CDT us Omari Sotelo MD LABORATORY Final Resul t Performing Organization Address [facility]/ZIP Co de Phone Number [facility] [address] [place] [address], [place] [phone] from Last 3 Months Insurance [facility] Care Teams Labor Relations Director Relationship Specialty Start Date End Date Annmarie Quarles, [place]LA [address] [facility] [address] [place] [address] PCP - General Nurse Practitioner Family 01/01/25
--- OUTSIDE RECORDS SUMMARY | 2025-03-05 17:36 | XMS_ITS ---
Author Organization [facility] Address [address] [place] [phone] Phone Care Team Providers Care Sql Database Administrator Name Role Phone Annmarie Quarles NP Primary Care Provider [phone] Transplant Episode Kidney Potential Donor [facility] ([place], [place]) - [facility] Referred on 10/16/2022 Marked as Deferred on 10/16/2022 Reason: Pending Return of Packet Kidney CoordinatorAco Criselda Hare MD Fax: N/A Email: N/A Care Team Name Role Phone Fax Email Aco Criselda Hare MD Kidney Coordinator N/A N/A Events Pre-Donation Referred: 10/16/2022
--- OUTSIDE RECORDS SUMMARY | 2025-03-05 17:36 | XMS_ITS | Encounter Summary ---
Author Organization [facility] Address [address] [place] [address] Care Team Providers Care Decorating Supervisor Name Role Phone Annmarie Quarles NP Primary Care Provider [phone] Encounter Details Date Type Department Care Team (Latest Contact Info) Description 02/10/2025 Results Follow-Up [facility] Gastroenterology at [address] [place] [address] Jacqueline Ram MD [address] [facility] [address] [place] [address] Surgical pathology Social History Tobacco Use Types Packs/Day Years Used Date Smoking Tobacco: Former Cigarettes 0.3 9.1 0 04/07/2009 - 01/05/2017 Passive Smoke Exposure: Never Smokeless Tobacco: Never Comments:No longer smoke. Alcohol Use Standard Drinks/Week [...] PM CDT documented as of this encounter Miscellaneous Notes * Result Encounter Note - Jacqueline Ram MD - 02/10/2025 12:05 PM CST I sent a MyChart note to patient as regards to recommendations based on pathology of recent endoscopic procedure(s), please set up a reminder of a colonoscopy in 5 years. Pathologist sent PCP a copy of pathology already. Thanks [employer]' COMPENSATION HEARINGS OFFICER documented in this encounter Plan of Treatment Not on file documented as of this encounter Visit Diagnoses Not on filedocumented in this encounter Care Teams Decorating Supervisor Relationship Specialty Start Date End Date Annmarie Quarles NP [address] [facility] [address] [place] [address] PCP - General Family Medicine 11/27/22 documented as of this encounter
[2025-03-05 17:39] VITALS: BP 148/89; PULSE 96; RESP 20; TEMP 36.9; O2SAT 98
--- NOTE | 2025-03-05 18:51 | ED_ITS ---
HPI - Extremity Injury (Lower) General Chief Complaint: Extremity Injury, Lower Stated Complaint: lower extremity injury Time Seen by Provider: 03/05/25 18:40 Focused HPI: Patient is a 34-year-old male who presents to the ER with pain to his right calf, right lower extremity, and top of his right foot. He reports he has a history of tendinitis 3-4 times. Patient reports his pain has been present for approximately 1 week. He also endorses mild edema and calf pain. Patient reports she has recently had an upper respiratory infection and would like to be swabbed for COVID. He denies any shortness of breath, recent fevers, right knee pain. GENERAL: Well-appearing, well-nourished, and in no acute distress. HEAD: Normocephalic, atraumatic. CHEST: Clear to auscultation. ?No respiratory distress. + congestion. HEART: Regular rate and rhythm.? NEURO: ?Alert and oriented x3. Patient screened in triage and initial orders placed.? ?Additional care and disposition to be based upon?diagnostic testing and treatment. Related Data Allergies Allergy/AdvReac Type Severity Reaction Status Date / Time No Known Allergies Allergy Verified 08/24/23 14:52 Review of Systems Review of Systems: All systems reviewed & are unremarkable except as noted in HPI and below PMFSH Past Medical History Medical History Hepatic steatosis Noted on imaging dated 02/03/2020. Gastroesophageal reflux disease Mixed hyperlipidemia History of varicocele Surgical History Surgical History Status post inguinal ligation of varicocele (~07/2017) History of photorefractive keratectomy (PRK) Family History Family History Grandparent Diabetes mellitus Social History Social History Social History: Surrogate decision maker: Rebecca Navarrete, spouse. Code status: Full code. Smoking packs per day: 1 Smoking cigarettes per day: 20.0 Smoking status: Former smoker Tobacco type: cigarettes Smoking end date: 04/07/15 Alcohol intake: current Drinks per week: 1 Substance use: never Additional living arrangements comments: Lives in [place] with his and their 3 children. 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 Gender identity (if verbalized by the patient): Male Spiritual care concerns: No Exam Narrative: GENERAL: Well appearing, well-nourished, non-toxic, in no acute distress. HEAD: Normocephalic, atraumatic. NECK: Supple. No adenopathy, no masses. RESPIRATORY: Airway patent, respirations nonlabored. Clear to auscultation bilaterally, no rales, rhonchi, wheezing. + congestion CARDIOVASCULAR: Regular rate and rhythm without murmurs, rubs, or gallops. Peripheral pulses 2+ and equal bilaterally. + Myranda's sign L leg ABDOMINAL: Soft, nontender, nondistended, no hepatosplenomegaly. Normoactive BS. MUSCULOSKELETAL: Moves all extremities. Strength/ROM intact without gross deformities. SKIN: Warm, dry, normal color. No rashes. No abnormal redness nor significant swelling. NEURO: A&O X3. Speech clear. Cranial nerves II-XII intact. No ataxic movements. PSYCHIATRIC: Appropriate mood and affect. Normal interaction. Course Vital Signs Vital signs: Vital Signs Temperature 36.9 C 03/05/25 17:39 Pulse Rate 96 03/05/25 17:39 Respiratory Rate 20 03/05/25 17:39 Blood Pressure 148/89 H 03/05/25 17:39 Pulse Oximetry 98 03/05/25 17:39 Temperature 36.8 C 03/05/25 20:42 Pulse Rate 99 03/05/25 20:42 Respiratory Rate 20 03/05/25 17:39 Blood Pressure 132/70 03/05/25 20:42 Pulse Oximetry 94 03/05/25 20:42 MDM - Extremity Injury (Lower) MDM Narrative Medical decision making narrative: Patient is a 34-year-old male who presents to the ER with pain to his right calf, right lower extremity, and top of his right foot. He reports he has a history of tendinitis 3-4 times. Patient reports his pain has been present for approximately 1 week. He also endorses mild edema and calf pain. Patient reports she has recently had an upper respiratory infection and would like to be swabbed for COVID. He denies any shortness of breath, recent fevers, right knee pain. Labs Ordered: COVID/flu/RSV swab Imaging Ordered: Right lower extremity venous Doppler, right foot x-ray Medications Ordered: Toradol 60 mg IM, prednisone 40 mg p.o., Results: Patient's foot x-ray indicates no acute abnormalities. Patient's ultrasound indicates no acute abnormalities. Diagnosis: Tendonitis, upper respiratory infection Consults: Orthopedic surgery (outpatient), Dr. Jimenez Patient Education/Shared MDM: Results of lab work and imaging shared with patient. He endorses improvement of symptoms following medication administration. Patient strongly advised to maintain hydration status upon d ischarge and follow-up with his PCP and orthopedic surgery as soon as possible. He will be discharged home with a prescription for Lidocaine patches, Ibuprofen 800mg, and Tessalon Perles. Strict return precautions provided. Patient verbalized understanding and is in agreement with plan. Vital signs stable at time of discharge. All questions answered. Differential Diagnosis Differential diagnosis: Likely ankle sprain and strain, ankle fracture and other (tendonitis, DVT, cellulitis, upper respiratory infection) Lab Data Attestation: I reviewed the patient's lab results. Labs: Lab Results 03/05/25 Range/Units 21:02 Influenza A (RT-PCR) Negative (Negative) Influenza B (RT-PCR) Negative (Negative) RSV (RT-PCR) Negative (Negative) SARS-CoV-2 RNA (RT-PCR) Negative (Negative) Imaging Data Attestation: I personally reviewed and interpreted this imaging study as follows: Radiologist's impression: Impressions Venous Doppler Study 03/05/25 19:14 Impression: Negative for DVT. Foot X-Ray 03/05/25 19:26 Impression: No acute fracture or malalignment. Discharge Plan Discharge Clinical Impression: Upper respiratory infection, Tendonitis of ankle, right Patient Disposition: Home Condition: Stable Instructions: Antibiotic Form, Achilles Tendinitis (ED), Upper Respiratory Infection (ED) Additional Instructions: Please return to the ER with any worsening symptoms. Follow-up with primary care provider as needed for your upper respiratory infection. Please contact Orthopedic surgery for further evaluation of your tendinitis. Take all medications as prescribed, including regularly scheduled medications. Patient Language: Malaysian Prescriptions: New lidocaine 5 % adhesive patch,medicated 1 patch topical DAILY Qty: 30 0RF Rx Instructions: leave on most painful area for up to 12 hrs ibuprofen 800 mg tablet 800 mg PO TID PRN (Reason: pain) Qty: 30 0RF benzonatate 100 mg capsule 100 mg PO TID Qty: 30 0RF Follow-up/Referrals: Willam,Annmarie Brown APRN [Primary Care Provider, Unknown] Stand Alone Forms: Work/School Release IP Time of Disposition: 22:28
[2025-03-05 20:42] VITALS: BP 132/70; PULSE 99; TEMP 36.8; O2SAT 94
[2025-03-05] MEDS: KETOROLAC (*BKC) 60 MG/2 ML VIAL IM (20:50)
[2025-03-05 21:47] LABS: Influenza A QL RT-PCR Negative (Negative); Influenza B QL RT-PCR Negative (Negative); RSV RNA, RT-PCR Negative (Negative); SARS-CoV-2 RNA PCR Negative (Negative)
[2025-03-05 22:37] VITALS: BP 129/78; PULSE 75; RESP 19; O2SAT 97
== END 2025-03-05 22:38 | disposition home or self-care (01) ==
PROVIDERS: Emergency Provider Registered Nurse; PCP Nurse Practitioner Family
DX: M77.51 Other enthesopathy of right foot and ankle (principal); J06.9 Acute upper respiratory infection, unspecified; Z20.822 Contact with and (suspected) exposure to COVID-19; E78.2 Mixed hyperlipidemia; K21.9 Gastro-esophageal reflux disease without esophagitis; Z87.891 Personal history of nicotine dependence
CPT/HCPCS: 73630; 87637; 93971; 96372; 99284; J1885; J7512